=== PATIENT | male | born 1955 | race Caucasian/White ===

== ENCOUNTER → 2023-11-19 08:12 | Outpatient (REF) | payer MEDICARE, SELFPAY | LOC: HWRCS 08:12 | PROVIDERS: ATTENDING PHYSICIAN Internal Medicine Cardiovascular Disease; FAMILY PHYSICIAN Family Medicine | DX: I51.7 Cardiomegaly (principal); I35.1 Nonrheumatic aortic (valve) insufficiency | CPT/HCPCS: 93306 ==

== ENCOUNTER 2023-12-16 06:51 | Day surgery (SDC) | payer MEDICARE, SELFPAY ==
[2023-12-16 07:31] VITALS: BMI 32.4
== END 2023-12-16 09:10 | disposition home or self-care (01) ==
LOC: CATH 06:51
PROVIDERS: ATTENDING PHYSICIAN Internal Medicine Cardiovascular Disease; FAMILY PHYSICIAN Family Medicine; OTHER PHYSICIAN Specialist
DX: I08.2 Rheumatic disorders of both aortic and tricuspid valves (principal); I10 Essential (primary) hypertension; E78.5 Hyperlipidemia, unspecified; N40.0 Benign prostatic hyperplasia without lower urinary tract symptoms; Z85.46 Personal history of malignant neoplasm of prostate
CPT/HCPCS: 93312; 93320; 93325

== ENCOUNTER → 2023-12-30 09:15 | Outpatient (REF) | payer MEDICARE, SELFPAY | LOC: HWRAD 09:15 | PROVIDERS: ATTENDING PHYSICIAN Thoracic Surgery (Cardiothoracic Vascular Surgery); FAMILY PHYSICIAN Family Medicine | DX: I35.1 Nonrheumatic aortic (valve) insufficiency (principal); I71.21 Aneurysm of the ascending aorta, without rupture; Z01.810 Encounter for preprocedural cardiovascular examination | CPT/HCPCS: 71275; 74174; Q9967 ==

== ENCOUNTER 2023-12-31 06:15 | Day surgery (SDC) | payer MEDICARE, SELFPAY ==
[2023-12-31] VITALS (11 sets, daily range): BP systolic 120–154; BP diastolic 66–83; BMI 33.0
[2023-12-31] MEDS: LOW STRENGTH ASPIRIN 324 MG PO (06:41)
--- NOTE | 2023-12-31 08:28 | ITS.CL.CATH ---
Prepared Foods Supervisor - Catheterization
Cardiac Catheterization
Procedure Report:
CARDIAC CATHETERIZATION REPORT
Date of Procedure: 12/31/2023
Referring: Ben Vigil MD
Indication: Severe AI with aortic root enlargement and ascending aortic enlargement
�
HEMODYNAMIC DATA
AO: 124/67
LV: 124/14
�
LEFT VENTRICULOGRAPHY: The left ventricle appears mildly enlarged with borderline systolic function with visually estimated EF 55%.
ASCENDING AORTOGRAPHY: There appears to be moderate dilation of the aortic root and ascending aorta. There is 4+ aortic insufficiency
�
CORONARY ANGIOGRAPHY
Dominance: Right
Left Main: Normal
LAD: Normal
Circumflex: Normal
RCA: Normal dominant vessel
�
Closure Device: None-the procedure was performed via the right radial artery. The Hemant's test was normal prior to the procedure.
�
Radiation (mGy): 623
DAP (cm2.Gy): 49.4
Fluoroscopy time: 5.3 minutes
�
CONCLUSIONS
1:�Left ventricular enlargement with borderline systolic function with EF 55%
2:�Severe aortic insufficiency
3. At least moderate dilation of the aortic root and ascending aorta
4. Normal coronary arteries
5. Patient is scheduled for Bentall repair on 01/13/24
�
�
Copy to: Ben Vigil MD, Mary Freedman DO, Jorge Osorio MD
�
Joao Cuba MD, [facility], [facility]
== END 2023-12-31 11:00 | disposition home or self-care (01) ==
LOC: CATH 06:15
PROVIDERS: ATTENDING PHYSICIAN Internal Medicine Cardiovascular Disease; FAMILY PHYSICIAN Family Medicine; OTHER PHYSICIAN Internal Medicine Cardiovascular Disease
DX: I35.1 Nonrheumatic aortic (valve) insufficiency (principal); Z79.899 Other long term (current) drug therapy; I10 Essential (primary) hypertension
CPT/HCPCS: 93458; 93567; C1894; Q9967

== ENCOUNTER 2024-01-13 05:14 | Inpatient (IN) | payer MEDICARE, SELFPAY ==
[2023-12-27 08:47] VITALS: BMI 32.8
[2023-12-27 09:25] LABS: % Basophils 0.6 % (0-2); % Eosinophils 2.4 % (0-6); % Immature Granulocytes 0.3 % (0-0.5); % Lymphocytes 20.8 % (20.5-51.1); % Monocytes 8.9 % (1.7-9.3); Absolute Eosinophils 0.1 10^3/uL (0-0.7); Absolute Lymphocytes 0.7 10^3/uL (1.2-3.4); Absolute Monocytes 0.3 10^3/uL (0.1-0.6); Absolute Neutrophils 2.3 10^3/uL (1.4-6.5); Hematocrit 35.3 % (39.0-52.0); Hemoglobin 12.7 g/dL (13.0-18.0); Mean Corpuscular Hgb 32.7 pg (27.0-31.0); Mean Platelet Volume 9.9 fL (7.4-10.4); Nucleated Red Blood Cells % 0 % (-); Platelet Count 179 10^3/uL (130-400); Red Blood Cell Count 3.88 10^6/uL (4.70-6.10); Red Cell Dist. Width 12.7 % (11.5-14.5); White Blood Cell Count 3.4 10^3/uL (4.8-10.8)
[2023-12-27 09:27] LABS: INR 1.04; PT 13.9 Sec (11.4-14.6)
[2023-12-27 09:31] LABS: Urine Albumin Negative (Neg - Trace); Urine Bilirubin Negative (Negative); Urine Character Clear (Clear); Urine Color Yellow; Urine Glucose Negative (Negative); Urine Ketone Negative (Negative); Urine Leukocyte Negative (Negative); Urine Nitrite Negative (Negative); Urine Occult Blood Negative (Negative); Urine Specific Gravity 1.025 (<1.030); Urine Urobilinogen Negative (Neg - 1+)
[2023-12-27 09:36] LABS: ALT (SGPT) 25 U/L (0-50); AST (SGOT) 30 U/L (17-59); Albumin 4.4 g/dl (3.5-5.0); Alkaline Phosphatase 46 U/L (38-126); Blood Urea Nitrogen 27 mg/dl (9-20); Carbon Dioxide 25 mmol/L (22-30); Chloride 107 mmol/L (98-107); Direct Bilirubin 0.2 mg/dl (0.0-0.4); Estimated Creatinine Clearance 78 ml/min; Glucose 99 mg/dl (70-99); Potassium 3.9 mmol/L (3.5-5.1); Sodium 144 mmol/L (135-145); Total Bilirubin 0.7 mg/dl (0.2-1.3); Total Protein 6.7 g/dl (6.3-8.2); eGFR > 60.00
--- NOTE | 2023-12-27 10:41 | CM ---
CM following for DC planning needs.
Met w/ patient during PATs for planned CT Surgery 01/12.
Pt. shares that he resides in a private, 1 story home w/ 2 ORA w/ spouse.
He is functionally indep. w/ ADLs, mobility without the use of any assisted device.
Pt. has RX plan and uses [facility] [place] for prescription needs.
Reviewed pre and post op routines.
Soap, shower instructions and Cardiac Surgery booklet reviewed/ provided.
Discussed post op restrictions to include lifting, driving, flying and sternal precautions.
Reviewed post op MD appointments, Cardiac Rehab and visit from CT Transitional Care RN.
Plan for CT Surgery 01/12.
Anticipated DC plan is for home w/ CT Transitional Care RN.
CM to follow for DC planning needs.
[2024-01-13] VITALS (13 sets, daily range): BP systolic 96–151; BP diastolic 73–91; BMI 33.4
[2024-01-13] MEDS: LOPRESSOR 25 MG PO (05:58)
[2024-01-13] MEDS: PROTONIX 40 MG PO (05:58)
[2024-01-13] MEDS: BACTROBAN 2% OINTMENT 1 APPLIC NASAL ×2 (05:58→20:22)
[2024-01-13] MEDS: MAGNESIUM OXIDE 500 MG PO (05:59)
--- NOTE | 2024-01-13 06:02 | W.CVOR.SURPR ---
[facility]OR Surgeon Immed Pre Op
-
I have examined this patient prior to performance of the scheduled procedure.
The patient's condition is unchanged from the time of the dictated/written History and
Physical and the patient is able to undergo the scheduled procedure.
Centerline CTA measurements performed, mild dilation of the ascending aorta, mid-ascending at it's maximal diameter is 4.4cm, root is 4.0-4.2cm, annulus 2.9-3.4cm, severe AI
Plan is for SAVR if AV repair is no feasible, given the severity of the AI and primary leaflet pathology, I suspect it will be replaced. Ascending aorta to be evaluated intraop, borderline dilation given his height of 1.91m he is below 2 SD from the
average expected diamter.
--- NOTE | 2024-01-13 06:25 | PTCARENOTE ---
Patient arrived with managed security sales consultant to room 2261. Patient A+A+Ox3. No neurological deficits noted. Patient ambulates without difficulty. No c/o pain or discomfort. Patient confirmed NPO status after midnight. Patient confirmed taking 4%
Chlorhexidine shower last night and this morning. Patient clipped and prepped per protocol. CHG wipes. Admission questions and medication reconciliation completed. Pre-op medications administered. Dr. Vigil arrived and spoke with patient.
Purpose of Heart pillow use and function explained to patient - Patient with demonstration of use. I.S. 3,500ml. Patient's arrived to room. webmethods consultant to [facility].
[2024-01-13 08:00] LABS: Urine Albumin Negative (Neg - Trace); Urine Bilirubin Negative (Negative); Urine Character Clear (Clear); Urine Color Yellow; Urine Glucose Negative (Negative); Urine Ketone Negative (Negative); Urine Leukocyte Negative (Negative); Urine Nitrite Negative (Negative); Urine Occult Blood 1+ (Negative); Urine Urobilinogen Negative (Neg - 1+)
[2024-01-13 08:06] LABS: ACT+ - POC 98 Seconds (82-134)
--- NOTE | 2024-01-13 08:25 | CM ---
Reviewed chart. Mr. Urban is in the operating room today. Prior to admission he resides with his spouse in a one story home with two steps to enter. Prior to admission he was independent with ambulation and adls. He yun not have any DME in the
home. He has a prescription plan and uses [facility]. Medical work-up in progress. The discharge plan is to retrun home with his spouse and a home visit by the Transitional Care Nurse when medically stable.
[2024-01-13 08:32] LABS: Urine Mucus Many
[2024-01-13 08:34] LABS: Urine Amorphous Seen; Urine Squamous Cell 0-2 /LPF (Few)
[2024-01-13 08:36] LABS: Urine Urothelial Cell 21-25 /LPF (FEW)
[2024-01-13 08:37] LABS: Urine White Cell 0-2 /HPF (0-5)
[2024-01-13 08:56] LABS: ACT+ - POC 627 Seconds (82-134)
[2024-01-13 09:26] LABS: B.E. - POC -2.1 mmol/L; Glucose - POC 101 mg/dl (70-99); HCO3 - POC 24 mmol/L (21-28); Hematocrit - POC 30 % PCV (42-52); Hemodilution- POC No; Hemoglobin Calculated - POC 10.3; Ionized Calcium - POC 1.32 mmol/L (1.15-1.33); O2 Saturation %Calculated-POC 96.7 % (94-98); PCO2 - POC 45 mmHg (35-48); PO2 - POC 94 mmHg (83-108); POC Comment PRE; Potassium - POC 3.6 mmol/L (3.5-5.1); Sodium - POC 143 mmol/L (136-145); pH - POC 7.33 (7.35-7.45)
[2024-01-13 09:35] LABS: ACT+ - POC 526 Seconds (82-134)
[2024-01-13 09:54] LABS: Glucose - POC 126 mg/dl (70-99); HCO3 - POC 28 mmol/L (21-28); Hematocrit - POC 27 % PCV (42-52); Hemodilution- POC Yes; Hemoglobin Calculated - POC 9.2; PCO2 - POC 47 mmHg (35-48); PO2 - POC 438 mmHg (83-108); POC Comment CPB; Potassium - POC 4.5 mmol/L (3.5-5.1); Sodium - POC 143 mmol/L (136-145); pH - POC 7.37 (7.35-7.45)
[2024-01-13 10:01] LABS: ACT+ - POC 463 Seconds (82-134)
[2024-01-13 10:30] LABS: B.E. - POC -0.1 mmol/L; Glucose - POC 151 mg/dl (70-99); HCO3 - POC 25 mmol/L (21-28); Hematocrit - POC 29 % PCV (42-52); Hemodilution- POC Yes; Ionized Calcium - POC 1.18 mmol/L (1.15-1.33); O2 Saturation %Calculated-POC 99.9 % (94-98); PCO2 - POC 40 mmHg (35-48); PO2 - POC 286 mmHg (83-108); POC Comment WARM; Potassium - POC 4.8 mmol/L (3.5-5.1); Sodium - POC 143 mmol/L (136-145); Specimen Type - POC Arterial
[2024-01-13 10:33] LABS: ACT+ - POC 109 Seconds (82-134)
[2024-01-13 10:54] LABS: B.E. - POC -2.4 mmol/L; Glucose - POC 122 mg/dl (70-99); HCO3 - POC 23 mmol/L (21-28); Hematocrit - POC 27 % PCV (42-52); Hemodilution- POC Yes; O2 Saturation %Calculated-POC 98.8 % (94-98); PCO2 - POC 39 mmHg (35-48); PO2 - POC 129 mmHg (83-108); POC Comment POST; Sodium - POC 143 mmol/L (136-145); Specimen Type - POC Arterial; pH - POC 7.37 (7.35-7.45)
--- NOTE | 2024-01-13 11:06 | CON.INTV ---
Consultation
Consultation Request
Date/Time Consultation Requested: 01/13/2024 - 1035
Date/Time Consultation Performed: 01/13/2024 - 1102
Requesting Provider: CHANDLER Light
Performing Provider: Yair Smith MD
Reason for Consultation: s/p SAVR, LA-MAZE with clip
Medical History
-
Chief Complaint: Elective aortic valve replacement
History of Present Illness:
68-year-old male non-smoker with a past medical history of aortic valve insufficiency, AAA, recurrent prostate adenocarcinoma s/p radical prostatectomy and lymphadenectomy (02/2019) + XRT, hyperlipidemia and hypertension who presents with elective
surgical aortic valve repair. He is known to the cardiothoracic surgery service with last visit on 12/18/[address] Vigil. Prior echo from 11/19/2023 showed moderate/severe eccentric AI with a dilated aortic root with the sinuses of Valsalva at
4.2 cm, ST junction 3.9 cm and ascending aorta 4.5 cm. GUERLINE performed on 12/16/23 showed dilated RV with normal systolic function, severe AI with no regional LV wall motion abnormalities. He meets criteria for surgical intervention. He also
endorsed shortness of breath with stairs, and his SOB has been worsening over the last 1 year. Left heart catheterization on 12/31/2023 showed normal coronary arteries. Surgical AV repair was discussed including its risks and benefits, and today
he underwent surgical aortic valve replacement; during the procedure while the Darby was being placed he went into atrial fibrillation and he underwent left atrial MAZE + left atrial appendage exclusion with a 35mm clip, and was cardioverted with 50
J once he came off bypass due to recurrent fibrillatory event. There were no post-operative complications and he was transferred to the CVICU postoperatively. Hemming And Tacking Machine Operator/pulmonary service now consulted for additional management/recommendations.
When I saw the patient he was in bed, intubated on SIMV at 12/600/80%/10, breathing at 14 breaths/min, with PIP: 18 cmH2O and VTe 429 mL. Heart rate 80, BP via left radial A-line: 116/75, PAP: 30/20, CO/CI: 5.17/2.08, respectively. He is
saturating 92%. He has mediastinal chest tubes x 2. Currently sedated on Precedex at 0.5 mcg/kg/hr + insulin drip at 2.6 units/hr.
PMHx: History of prostate cancer s/p prostatectomy/lymphadenectomy + XRT, hyperlipidemia, hypertension, aortic valve insufficiency, AAA
PSHx: Robotic radical prostatectomy and lymphadenectomy (02/2019), torn bicep tendon surgery, right eye cataract surgery (11/2019)
Past Medical History
Past Medical History: Other (Above as per HPI)
Past Surgical History: Other (Above as per HPI)
Social History
Tobacco: Non-smoker
Alcohol: Occasional (Socially during weekends)
Drug: None
Personal:
Living: With Family
Employment: Retired
Family History
Family History: Cancer (Father: Pancreatic cancer; Paternal grandmother: Breast cancer; Mother: Lung cancer; Sister: Ovarian cancer; Brother: Melanoma) and Hypertension (Father)
Allergies / Home Medications
Allergies
Allergy/AdvReac Type Severity Reaction Status Date / Time
No Known Allergies Allergy Verified 12/31/23 06:56
Home Medications
�Medication �Instructions �Recorded �Confirmed �Last Taken �Type
amlodipine 10 mg tablet 10 mg PO DAILY 02/27/19 01/13/24 01/10/24 08:00 History
10 mg
fenofibrate nanocrystallized 145 145 mg PO DAILY 02/27/19 01/13/24 01/12/24 08:00 History
mg tablet 145 mg
hydrochlorothiazide 25 mg tablet 25 mg PO DAILY 12/16/23 01/13/24 01/10/24 08:00 History
25 mg
labetalol 200 mg tablet 200 mg PO BID 12/16/23 01/13/24 01/12/24 20:00 History
200 mg
tamsulosin 0.4 mg capsule 0.4 mg PO HS 12/16/23 01/13/24 01/12/24 20:00 History
0.4 mg
Review of Systems
-
Unable to Obtain full review of systems at this time due to: Patient Intubation
Vitals / Labs / Diagnostic Testing
Vital Signs
Temp Pulse Resp BP Pulse Ox
97.6 F 80 14 145/73 93
01/13/24 12:07 01/13/24 12:05 01/13/24 12:07 01/13/24 05:58 01/13/24 12:35
Lab Data
01/13/24 11:34
Laboratory Results
01/13/24
11:34
PT 17.2 H
INR 1.38
APTT 31.3
pH 7.29 L
pCO2 52 H
pO2 74 L
HCO3 25.0
O2 Delivery Level
Diagnostic Testing:
Physical Exam
-
HEENT: Normocephalic, Anicteric and Other (ETT in place)
Cardiovascular: S1/S2 and Peripheral Edema (negative)
Respiratory: Wheeze (negative), Rales (negative), Rhonchi (negative), Non-Labored Respirations, Other (Mechanical breath sounds heard bilaterally) and Other (chest tubes: mediastinal chest tubes x2)
GI: Soft, Non Distended, Non Tender and Normal Bowel Sounds
Neurology: Tremors (negative) and Other (Sedated)
Skin: Warm and Dry
General: Respiratory Distress (negative), Fever (negative) and Chills (negative)
Assessment
-
Assessment: 68-year-old male non-smoker with a PMHx of aortic valve insufficiency, AAA, recurrent prostate adenocarcinoma s/p radical prostatectomy and lymphadenectomy (02/2019) + XRT, hyperlipidemia and hypertension who presents with elective
surgical aortic valve repair. He is known to the cardiothoracic surgery service with last visit on 12/18/[address] Vigil. Prior echo from 11/19/2023 showed moderate/severe eccentric AI with a dilated aortic root with the sinuses of Valsalva at
4.2 cm, ST junction 3.9 cm and ascending aorta 4.5 cm. He has been having worsening shortness of breath and meets indication for surgical aortic valve replacement. On 01/13/2024, he underwent surgical aortic valve replacement; during the procedure
while the Darby was being placed he went into atrial fibrillation and underwent left atrial MAZE + left atrial appendage exclusion with a 35mm clip, and was cardioverted with 50 J once he came off bypass due to recurrent fibrillatory event. There
were no complications and he was transferred to the CVICU postoperatively. Hemming And Tacking Machine Operator/pulmonary service now consulted for additional management/recommendations.
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
Impression:
#Severe aortic valve insufficiency with prolapse leaflets and dilated RV s/p surgical aortic valve replacement (POD #0)
#New onset atrial fibrillation s/p left atrial maze + left atrial appendage exclusion with 35mm clip (POD #0)
#Acute thrombocytopenia (mild)
#Acute respiratory failure with hypercapnia
#Chronic anemia
#History of recurrent prostate cancer s/p prostatectomy/lymphadenectomy + XRT
#AAA without rupture
#Hypertension
#Hyperlipidemia
Plan:
Ventilator settings reviewed
FiO2 will be weaned to maintain SpO2 >90-94%
Minute ventilation will be adjusted
Arterial blood gases will be monitored
Spontaneous breathing trial will be attempted with hopeful extubation after anesthesia/sedation wear off
prn nebulized bronchodilators
Pulmonary artery catheter parameters will be followed
Pressors/antihypertensive/inotropes/diuretics will be provided as needed
Maintain MAP>65
Replete electrolytes with K>4, Mg>2
Monitor for recurrence of atrial fibrillation, and continue with amiodarone
He is s/p left atrial appendage exclusion; defer starting systemic AC to cardiology
Monitor chest tube output (mediastinal chest tubes x2)
Monitor hemoglobin
Monitor platelet count and coags
Transfuse blood products as needed to maintain Hb>7g/dL, plt>50k (given post-operative status)
CT surgery managing chest tubes
Monitor blood sugar to maintain euglycemia with goal BG 140-180
Insulin drip per protocol
Aspiration precautions
VAP prevention protocol
DVT prophylaxis
Early nutrition
Early mobilization
Critical care statement: A total of 41 minutes of critical care time was provided for this patient today. This includes management of ventilator, spontaneous breathing trial, arterial blood gases, pressors, of unstable vital signs, evaluation of the
patient at bedside, reviewing the patient's pertinent medical records including radiographs, microbiology, laboratory evaluations, and discussion with primary team and critical care nursing.
Imaging:
CXR 01/13/2024: Mild pulmonary vascular congestion.
--- NOTE | 2024-01-13 11:17 | W.PN.CT.SURG ---
CT Surgery Operative Note
-
CARDIAC SURGERY OPERATIVE REPORT
Preoperative Diagnosis: Aortic valve insufficiency with prolapse leaflets and dilated ventricle
Postoperative Diagnosis: Same, and new onset atrial fibrillation
Procedure(s) Performed:
1. Standard sternotomy with aortic root atrial cannulation
2. Left atrial maze [encompass clamp, posterior wall isolation]
3. Left atrial appendage exclusion [35 mm clip]
4. Surgical aortic valve replacement [29 mm bioprosthesis]
5. Sternal fixation with plates x 3
6. Transesophageal echocardiography
7. Placement temporary ventricular pacing wire
Date of Surgery: 01/13/2024
Comorbidities:
1. Severe aortic valve insufficiency secondary to leaflet prolapse x 2
2. Dilated cardiomyopathy, nonischemic secondary to longstanding aortic valve insufficiency
3. Hyperlipidemia
4. Hypertension
5. History of recurrent adenocarcinoma of the prostate, status post radical prostatectomy and chemotherapy
6. CKD stage III
7. Ascending thoracic aortic ectasia/mild aneurysmal dilation
Attending Surgeon: Ben Vigil MD, MS
Assistants: Ben Serna PA-C (present and necessary to first aid attendant, retraction, suction, exposure, suture management, and wound closure under my direction)
Anesthesiology: Salomón Mattson MD and Nicol Gonzalez CRNA
Scrub and Circulating RNs: Tommie Smiley RN, Suzette Meeks RN
Recreation Coordinator: Harsh Ross CCP
Anesthesia: GETA
EBL: per perfusion records
Products: None
CPB Time: 78 minutes
Aortic Cross Clamp Time: 51 minutes
Indication(s) for Procedures: This is a 68-year-old male with severe aortic valve insufficiency, he also has a mildly dilated root and mildly dilated ascending thoracic aorta. He has had serial echocardiograms going back as far as 2022 which
demonstrated an LVEDD/LVSD of 6.3/3.9 cm, this has progressed to his most recent transthoracic echocardiogram performed in 11/19/2023 which revealed an LVEDD and LVESD of 6.8/4.8 cm, respectively. Given the progressive dilation on serial
echocardiograms, he underwent a transesophageal echocardiogram which demonstrated severe aortic valve insufficiency secondary to leaflet prolapse particularly to the noncoronary cusp and right coronary cusp. He is a trileaflet aortic valve. Ago
his thoracic aorta did measure to be 4.4 to 4.5 cm, a dedicated CT angiogram of the chest abdomen pelvis and centerline measurements were performed by me. His ascending thoracic aorta measured 4.3-4.4 at his greatest diameter. The root was
approximately 4.0 to 4.2 cm at the sinus of Valsalva's and his STJ was approximately 4.0 cm. His annulus measured to be 28 x 32 to 33 mm. Given his height of 1.91 m and BSA of 2.48, I did not believe he met criteria for replacement or ascending
thoracic aortic replacement. Plan was for surgical valve replacement with left atrial appendage exclusion.
Aortic Valve Description: Trileaflet aortic valve, prolapse of the noncoronary cusp as well as some prolapse of the right coronary cusp. Left and right coronary arteries in the normal anatomic positions with high ostia.
Findings: His left ventricular ejection fraction was low normal at approximately 50% with no significant regional wall motion abnormalities. Following surgery his EF remained the same with no new regional wall motion abnormalities. He had prolapse
of both the noncoronary cusp as well as the right coronary cusp with a nonbeing worse. I did do a plication stitch at the [facility] however I felt this would not be successful and so the leaflets were excised and annular sutures placed.
However given that there was prolapse of both leaflets a total of 16 nonpledgeted 2 Ethibond suture plate circumferentially from LVOT through annulus through sewing cuff. Between 9 mm bioprosthetic valve was then parachuted into place and secured
core knots. The left and right coronary arteries were free from obstruction. The aorta was closed in standard fashion in double layer. Of note, he did go into atrial fibrillation with controlled rates after induction during the [place] placement.
Given this, a left atrial maze was performed to isolate his posterior wall and left atrial appendage was excluded with a 35 mm clip. His left atrial appendage was found to be free of any thrombus or debris preoperatively and totally occlusive at
the end of the case. He did not require any blood products, did not require any inotropic support, did not require any pacing. Coming off of bypass he did have 1 fibrillatory event likely secondary to air entrainment which required defibrillation
at 50 J. Cardiac index was above 2 and there is no paravalvular leak and a mean gradient of 4 across the valve. Of note, he did require. Time for pulmonary recruitment as his saturations were in the low 90s coming off cardiopulmonary bypass.
Specimen(s): Aortic valve leaflet.
Prosthesis:
29mm DIEHL INSPIRIS RESILIA AVR, SN [id number]
35mm left atrial appendage clip, serial #[id number]
1 mustache plate, 1 gold curved box plate and 1 box bridge plate
Description of Procedure: The patient was taken to the operating room. Their identity and procedure to be performed were verified and they were positioned supine on the operating table. Induction via general anesthesia with endotracheal intubation
was performed and central venous access and arterial monitoring were inserted. A preoperative transesophageal echocardiogram was performed to assess cardiac function and valvular function. The patient was then prepped and draped from chin to feet in
a sterile fashion. A preoperative time-out was performed with all members of the team present. A midline chest incision was performed along with median sternotomy. The innominate vein was isolated. Full heparinization was given (a total of 75
units). We created a pericardial well. The aortic cannulation site was chosen where it was soft, pliable, and free of calcium. Cannulation was performed with an arterial cannula in the ascending aorta and a triple-stage venous cannula through the
right atrial appendage. The arterial cannula line had an appropriate bounce and correlating pressures with test dosing. The ACT was confirmed to be over 400 and retrograde autologous priming was performed before commencing cardiopulmonary bypass.
The SVC was then from the right pulmonary artery. The oblique sinus was then developed. The encompass clamp was passed through the oblique and transverse sinuses and 3 successful pairs of ablation were performed. The pulmonary artery
was away from the aorta to facilitate a clamp site and aortotomy. A retrograde coronary sinus catheter was placed via the right atrium under manual and GUERLINE guidance. A left ventricular vent was placed at the right superior pulmonary vein
and secured. The aortic cross-clamp was placed after decreasing the flow on the bypass and mean arterial pressure. The aorta was then opened and stay sutures were placed in order to fill Siltape exposure. A total of 1.2L initial dose of retrograde
and direct ostial antegrade Del-Nido cardioplegia solution was given and planned for re-dosing every 75 minutes as necessary. There was rapid electro-mechanical arrest of the heart at 650 cc of cardioplegia essentially this was restarted given down
the right coronary ostium. Cold slush was placed into a sponge and topically on the RV while we systemically cooled to 34 degrees centigrade. The heart was then medialized and the left atrial appendage was then exposed and sized to 35 mm clip which
was applied flush to the base.
Carbon dioxide was used to flood the field. The location of both left and right coronary vessels were visualized in the root.The leaflets were excised and sent for pathological assessment. Initially plicated the noncoronary cusp but given that
there was also prolapse of the right coronary cusp, I felt that repairing this valve would be unsuccessful. The leaflets were then excised and sent off for pathology. A total of 16 Non-pledgeted 2-0 ethibond inverted annular sutures were placed
[id number] circumferentially. These were brought through the sewing cuff of the prosthetic valve which as then parachuted into place. The left and right coronary ostia were visualized and were unobstructed by the valve. A Cor-Knot device was used
to secure the annular sutures. The valve was inspected and was well seated. The aortotomy was approximated with 4-0 prolene in two layers. De-airing maneuvers were performed and temporary bipolar ventricular pacing wires were placed on the base of
the right ventricle. The patient was placed in a Trendelenburg position and flows on bypass were lowered. The aortic cross clamp was removed and flows were slowly brought back up. The aortotomy appeared hemostatic. Transesophageal echocardiography
revealed no paravalvular leak and appropriate prosthetic function. Once de-airing was satisfactory, the left ventricular and root vents were removed. After verifying acceptable parameters, we initiated weaning from cardiopulmonary bypass. Once we
were off cardiopulmonary bypass, the venous cannula was clamped and removed. A test dose of protamine was administered and the patient was monitored for any adverse reaction before resuming protamine. Once half of the protamine dose was delivered,
pump suckers were turned off and the systolic blood pressure was lowered for aortic decannulation. The aortic cannula was removed and pursestrings were tied down. All cannulation sites were oversewn with a 4-0 prolene. The aortotomy suture line was
inspected and hemostasis was confirmed. Mediastinal hemostasis was obtained. Two 24Fr Yunior drains were placed within the pericardium. The sternum was approximated with 3#7 single and 3 #8 double stainless steel wires with 3 additional plates for
reinforcement. Fascia was approximated with #1 vicryl suture. The subcutaneous, dermis and epidermis were closed in layers in a running fashion. The skin wound was cleansed and dressed.
All instrument, sponge, and needle counts were confirmed to be correct x 2 at the end of the operation. The patient was transferred to the cardiac intensive care unit in critical but stable condition.
I, Dr. Ben Vigil, was present, scrubbed for, and performed all critical elements of this procedure.
Ben Vigil MD, MS
Cardiothoracic Surgeon
[facility]
This operative dictation was created using the [employer] dictation system. Please excuse any grammatical, typographical, or 'sound alike' errors
[2024-01-13 11:41] LABS: Glucose - Point of Care 128 mg/dl (70-99)
--- NOTE | 2024-01-13 11:46 | W.PN.UPDATE ---
Update Note
Progress Note Update
68-year-old male electively admitted for aortic valve replacement. Ascending aorta measured 4.5 cm on CTA. Patient developed paroxysmal atrial fibrillation during [place] placement.
IV fluids: 1200
U.O.:� 350
UF:�
Blood:� none
Wires:� v-wires
Inotropes:�
Pressors:� Levophed-off on arrival
Sedatives:� Precedex
�
NEURO: sedated on Precedex, pupils +2mm B/L
RESP: #8OT @24cm> 500/60%/14/5. Lungs clear B/L. 2 mediastinal (30cc on arrival) chest tubes to -20cm suction. Sanguineous drainage
CV: RRR +S1, S2, no S3, no�rub, no murmur. Dermabond to median sternotomy. RIJ w/[place] locked @ 48cm. PA 33/22; CVP 13; CI 2.08
ABD: round, soft, no BS
EXT: no edema, +2/4 DP pulses B/L, no femoral bruit, left radial A-line intact
: Crum with clear yellow urine
�
A/P: POD #0 s/p aortic valve replacement [#29 mm bioprosthesis], Left atrial maze [encompass clamp, posterior wall isolation], left atrial appendage exclusion [#35 mm clip]. Sternal fixation with plates x 3
GUERLINE: EF�
- wean and extubate
- will need instruction regarding antibiotic prophylaxis for dental and invasive procedures
# Paroxysmal atrial fibrillation>s/p MAZE/ANUJA clip
- ASA only
- continue beta marilin
# Acute hypoxic respiratory failure-expected
- ETT good position, no fluid/PTX on CXR
- increase PEEP 10, FiO2 80%, TV 600
- trend ABG
# Hx prostate cancer s/p prostatectomy 2019
- resume Flomax prior to Crum removal
�
# Acute surgical blood loss anemia-expected
- trend CBC
# HTN
- resume home Amlodipine and HCTZ as BP permits
�
# Hyperlipidemia
- resume�fenofibrate when tolerating solid foods
[2024-01-13 11:47] LABS: Ionized Calcium 1.36 mMOL/L (1.15-1.33); O2 Saturation % 95.3 % (94-98); PCO2 52 mmHg (35-48); PO2 74 mmHg (83-108); Potassium 4.2 mMOL/L (3.5-5.1); Sodium 140 mMOL/L (136-145); pH 7.29 (7.35-7.45)
[2024-01-13 11:48] LABS: Hemoglobin 10.4 g/dL (13.0-18.0); Platelet Count 144 10^3/uL (130-400)
[2024-01-13 11:51] LABS: Mixed Venous O2 Saturation 64.1 %
--- NOTE | 2024-01-13 11:53 | W.PN.CD ---
Addendum entered and electronically signed by Deangelo Vazquez MD 01/13/24 16:56:
I saw and examined the patient.
The MANUFACTURING CONTROLLER's note was reviewed and I agree with the note.
Comment: EKG looks good. Extubated. Intraop GUERLINE good. Agree with care plan.
Original Note:
Today's Communication / Plan
-
Pulmonary recruitment per director of logistics service
Follow telemetry
Impression / Plan
-
IMPRESSION/PLAN: 68M with prostate cancer with recurrence, hypertension, mild LVH, severe AI, and ascending aorta dilation at 4.4 cm presented for SAVR.
Outpatient reconciliation accountant: Dr. Osorio
SAVR (29mm Ray Inspiris) by Dr Vigil 01/13/2024
-Pre LVEF 50%, unchanged post without RWMA
-Coming off of bypass he did have 1 fibrillatory event likely secondary to air entrainment which required defibrillation at 50 J
-MG 4mmg with CI > 2 at the end of the case
-EKG sinus with prolonged QT, EKG in am
Atrial fibrillation, paroxysmal
-Controlled rates after induction during the [place] placement, left atrial MAZE performed & ANUJA clip
-Follow telemetry
HTN, managed by Nephrology
CKDIIIa
Prostate cancer S/P Robotic Radical prostatectomy and Lymphadenectomy ([place], 02/2019) & XRT
SUBJECTIVE:
Intubated and sedated. Operative report reviewed
Physical Exam
Vital Signs/Labs
Vital Signs
Temp Pulse Resp BP Pulse Ox
97.6 F 79 12 145/73 95
01/13/24 11:37 01/13/24 11:35 01/13/24 11:37 01/13/24 05:58 01/13/24 11:52
01/12/24 01/13/24 01/14/24
06:59 06:59 06:59
Actual Weight 121.2 kg
PT 13.9 Sec (11.4-14.6) 12/27/23 08:56
INR 1.04 12/27/23 08:56
APTT 29.0 Sec (23.4-35.0) 12/27/23 08:56
Physical Exam
Constitutional: No acute distress and Comfortable
EENT: Anicteric and Moist mucous membranes
Cardiovascular: Rhythm & rate is regular and Pedal edema is absent
Respiratory: Lungs clear to auscul. and Other (Mechanical ventilation)
GI: Soft and Distention absent
Neuro/Psych: Other (Sedated)
Other: Skin (Warm and dry without edema)
Data Reviewed
-
Date of Service: January 13, 2024
[2024-01-13 11:59] LABS: INR 1.38; PT 17.2 Sec (11.4-14.6)
[2024-01-13 12:00] LABS: APTT 31.3 Sec (23.4-35.0)
[2024-01-13 12:12] LABS: Blood Urea Nitrogen 21 mg/dl (9-20); Estimated Creatinine Clearance 85 ml/min; Glucose 122 mg/dl (70-99); Magnesium 2.6 mg/dl (1.6-2.3)
--- NOTE | 2024-01-13 12:13 | PTCARENOTE ---
Received pt from [facility] at 1130; pt intubated and sedated; NSR on monitor and VSS; Epicardial V wire in place and box turned off; RIDesiree Friedan floated to 46, Left S-line and PIV x1; all lines leveled and zeroed; Insulin and Precedex infusing see
flow sheet for details; Lungs diminished; ETT 8 @ 22; SIMV 60%, 12, 500, 10; CT x2 to -20 wall suction no air leak and no crepitus noted; hypoactive bowel sounds; Crum catheter draining clear yellow urine; no edema; palpable pulses throughout;
surgical site C/D/I; Family at bedside and updated; see nursing documentation for further details.
CI 2.08
CO 5.17
SVR 1129
ABGS reviewed with CVNP vent settings changed to SIMV 80%, 600, 12, 10. Next ABG at 1230
[2024-01-13] MEDS: NSS 500 IV (12:39)
[2024-01-13] MEDS: ANCEF 10 IV ×2 (12:39)
[2024-01-13] MEDS: NEURONTIN PO ×2 (12:40→15:45)
[2024-01-13 12:52] LABS: HCO3 24.8 mmol/L (21-28); O2 Saturation % 97.2 % (94-98); PCO2 45 mmHg (35-48); PO2 82 mmHg (83-108); pH 7.35 (7.35-7.45)
[2024-01-13 13:01] LABS: Glucose - Point of Care 113 mg/dl (70-99)
--- NOTE | 2024-01-13 13:08 | PTCARENOTE ---
Temporary pacer tested, pacer set to back up VVI 40/8/2; NSR and VSS on monitor.
[2024-01-13 14:06] LABS: Glucose - Point of Care 97 mg/dl (70-99)
[2024-01-13] MEDS: TYLENOL PO (14:21)
[2024-01-13 14:27] LABS: B.E. -1.3 mmol/L; HCO3 23.7 mmol/L (21-28); Ionized Calcium 1.34 mMOL/L (1.15-1.33); O2 Saturation % 97.7 % (94-98); PCO2 40 mmHg (35-48); PO2 87 mmHg (83-108); Potassium 4.1 mMOL/L (3.5-5.1); Sodium 140 mMOL/L (136-145); pH 7.38 (7.35-7.45)
[2024-01-13 14:28] LABS: O2 Therapy 40% FiO2
[2024-01-13] MEDS: OFIRMEV 100 IV (14:42)
[2024-01-13 15:07] LABS: Glucose - Point of Care 116 mg/dl (70-99)
[2024-01-13 15:13] LABS: B.E. -2.2 mmol/L; HCO3 23.2 mmol/L (21-28); O2 Saturation % 98.5 % (94-98); PCO2 41 mmHg (35-48); PO2 92 mmHg (83-108); pH 7.36 (7.35-7.45)
--- NOTE | 2024-01-13 15:13 | PTCARENOTE ---
Respiratory at bedside and pt placed on CPAP; ABGs at 1540.
[2024-01-13 15:14] LABS: Hematocrit 31.8 % (39.0-52.0); Hemoglobin 11.1 g/dL (13.0-18.0); Platelet Count 140 10^3/uL (130-400)
[2024-01-13] MEDS: PACERONE PO (15:45)
[2024-01-13 15:52] LABS: B.E. -0.9 mmol/L; HCO3 23.5 mmol/L (21-28); O2 Saturation % 97.8 % (94-98); PCO2 37 mmHg (35-48); PO2 83 mmHg (83-108); pH 7.41 (7.35-7.45)
--- NOTE | 2024-01-13 15:56 | PTCARENOTE ---
ABGs reviewed with CVNP; respiratory at bedside and pt extubated; 6LNC.
[2024-01-13 16:10] LABS: Glucose - Point of Care 111 mg/dl (70-99)
[2024-01-13] MEDS: DILAUDID 0.25 MG IV (16:45)
[2024-01-13] MEDS: LASIX 20 MG IV (16:49)
[2024-01-13] MEDS: NITROGLYCERIN PREMIX 250 IV (17:13)
[2024-01-13 17:28] LABS: B.E. -1.8 mmol/L; HCO3 23.1 mmol/L (21-28); O2 Saturation % 95.2 % (94-98); PCO2 39 mmHg (35-48); PO2 68 mmHg (83-108); pH 7.38 (7.35-7.45)
[2024-01-13] MEDS: LOW STRENGTH ASPIRIN 81 MG PO (17:39)
[2024-01-13] MEDS: ANCEF 5 IV (18:08)
[2024-01-13 18:16] LABS: Glucose - Point of Care 112 mg/dl (70-99)
[2024-01-13] MEDS: ROXICODONE 5 MG PO (18:57)
[2024-01-13 20:03] LABS: Glucose - Point of Care 120 mg/dl (70-99)
[2024-01-13 20:13] LABS: Glucose - Point of Care 115 mg/dl (70-99)
[2024-01-13] MEDS: SENOKOT-S 1 TABLET PO (20:21)
--- NOTE | 2024-01-13 20:30 | PTCARENOTE ---
Assumed care of pt from ivonne RN. Walking rounds completed. Pt AAOx3. BARRIENTOS. Following commands appropriately. Pt is SR w/ occasional PVC's/PAC's on the tele monitor. HR 80s. Temporary epicardial V-wire intact and set to backup VVI 40/8/2. Heart
tones audible. CO:7.65 CI:3.08 SVR:878. CVP ~8. PAP 20s/teens. BP 121/86. MAP 98. Palpable pulses throughout. No edema noted at this time. Pt on 6 L NC. POX 93%. Lung sounds diminished throughout. Deep breathing encouraged. Mediastinal CTx2 to -20
suction, no airleak or tidaling noted at this time, and output appropriate. Abdomen soft/nontender. Hypoactive BS. Crum catheter C/D/I and draining yellow urine. Right IJ cordis w/ SWAN C/D/I and left radial a-line C/D/I. All lines leveled, zeroed,
and flushed. Nitro infusing per protocol. Glycemic protocol followed. Sternal incision intact and MARINE TECHNICIAN. See MAR for pain medication administration. See worklist for full nursing assessment and interventions. Call leija within reach.
[2024-01-13] MEDS: PACERONE 200 MG PO (21:54)
[2024-01-13] MEDS: DILAUDID 0.5 MG IV (21:54)
[2024-01-13] MEDS: NEURONTIN 100 MG PO (21:54)
[2024-01-13] MEDS: TYLENOL 1000 MG PO (21:54)
[2024-01-13 22:01] LABS: Glucose - Point of Care 120 mg/dl (70-99)
[2024-01-14] VITALS (24 sets, daily range): BP systolic 105–156; BP diastolic 78–98; PULSE 65; O2SAT 96–97; BMI 33.0
[2024-01-14 00:01] LABS: Glucose - Point of Care 134 mg/dl (70-99)
--- NOTE | 2024-01-14 00:11 | PTCARENOTE ---
Pt reassessed. Pt SR on the tele monitor w/ occasional PVC's. HR 80s. Temporary epicardial v-wire intact. CI: 2.55. CO: 6.33. CVP ~6. PAP's 20s/teens. BP 100-120s/70s. Nitro infusing as ordered. Pt on 6 L NC. POX 95%. Mediastinal CTx2 assessment
unchanged from previous. Sternal incision intact. Crum catheter C/D/I and draining yellow urine. Right IJ cordis w/ SWAN and left radial a-line C/D/I. All lines leveled, zeroed, and flushed. Pt tolerating ice chips and sips of water. Call leija
within reach.
[2024-01-14 01:05] LABS: Glucose - Point of Care 116 mg/dl (70-99)
[2024-01-14 02:07] LABS: Glucose - Point of Care 106 mg/dl (70-99)
[2024-01-14] MEDS: ANCEF 5 IV ×2 (02:10→11:13)
[2024-01-14] MEDS: DILAUDID 0.25 MG IV (02:10)
[2024-01-14] MEDS: FLOMAX 0.4 MG PO ×2 (02:10→22:19)
[2024-01-14 03:12] LABS: Glucose - Point of Care 121 mg/dl (70-99)
--- NOTE | 2024-01-14 03:28 | W.PN.CT ---
Today's Communication / Plan
-
Plan:
-No major issues overnight. Hemodynamically and neurologically intact
-Successfully extubated on 01/13/24 @ 1550
-Weaned off NTG gtt overnight, remains insulin gtt per protocol
-Last CI 3.10, U/O since OR 1385 mL
-Monitor chest tube output: 2meds 190/410
-Cont. current meds (ASA, Lopressor, Amiodarone- increased to 400 TID d/t tachycardia, Flomax)
-D/C'd swan and a-line this AM @ 0500
-D/C'd waller catheter later today
-Transfer to [facility] phase today once off insulin gtt
-Maintain temporary PW (will likely pull in 1-2 days)
-Maintain cordis
-Encourage use of IS
-Wean off of O2 as tolerated
-OOB into chair/Ambulate
Assessment / Plan
-
Assessment:
-S/P Standard sternotomy/Surgical aortic valve replacement [29 mm bioprosthesis]/Left atrial maze [encompass clamp, posterior wall isolation]/ Left atrial appendage exclusion [35 mm clip], by Dr. Vigil, 01/13/24, pod#1
-Severe aortic valve insufficiency secondary to leaflet prolapse x 2
-Dilated cardiomyopathy, nonischemic secondary to longstanding aortic valve insufficiency
-LVEF 50-55% per intraop GUERLINE
-New onset a-fib intraop S/p defibrillation @ 50J intraop
-Hyperlipidemia
-Hypertension
-History of recurrent adenocarcinoma of the prostate, status post radical prostatectomy and chemotherapy, 2019
-Nocturia (on Flomax)
-CKD stage IIIb
-Ascending thoracic aortic ectasia/mild aneurysmal dilation
-Acute postop blood loss/Anemia (stable without transfusion)
-Acute postop atelectasis
-Acute postop hypovolemia with subsequent hypervolemia
Discussed patient care with: Cardiology, Nursing, Respiratory Therapy, Pharmacy and Care Team
Subjective
Procedure
S/P Standard sternotomy/Surgical aortic valve replacement [29 mm bioprosthesis]/Left atrial maze [encompass clamp, posterior wall isolation]/ Left atrial appendage exclusion [35 mm clip], by Dr. Vigil, 01/13/24
-
Date of Service: January 14, 2024
No major issues overnight, c/o incisional pain, otherwise feels well
Objective Data
-
PT 17.2 Sec (11.4-14.6) H 01/13/24 11:34
INR 1.38 01/13/24 11:34
APTT 31.3 Sec (23.4-35.0) 01/13/24 11:34
Vital Signs
Vital Signs
Temp Pulse Resp BP Pulse Ox
99.2 F 86 15 115/80 94
01/14/24 03:00 01/14/24 03:05 01/14/24 03:05 01/14/24 03:00 01/14/24 03:05
CT Intake/Output/Weight
01/13/24 01/13/24 01/14/24
06:59 18:59 06:59
Intake Total 326.2 / 647.8 321.6 / 647.8
Output Total 1170 / 1685 515 / 1685
Balance -843.8 / -1037.2 -193.4 / -1037.2
SaO2: 94 (6L)
Physical Exam
-
General: Awake, Oriented and AOx3
Cardiovascular: Regular rate & rhythm, No Murmurs, No Rub and No Gallop
Respiratory: Decreased Breath Sounds (at bases, otherwise clear)
Sternum: Stable
Incision: Clean, Dry, Intact and Dressing Intact
Extremities: Other (+trace edema)
Data Reviewed
-
Lab Results: Results Reviewed
Medications: Active Meds Reviewed
Chest X-Ray: Report Reviewed and Image Reviewed
ECG: Report Reviewed and Image Reviewed
[2024-01-14 03:31] LABS: Hematocrit 29.9 % (39.0-52.0); Hemoglobin 10.6 g/dL (13.0-18.0); Mean Corp Hgb Conc. 35.5 g/dL (33.0-37.0); Mean Corpuscular Hgb 32.7 pg (27.0-31.0); Mean Corpuscular Volume 92.3 fL (80.0-94.0); Mean Platelet Volume 9.5 fL (7.4-10.4); Platelet Count 155 10^3/uL (130-400); Red Blood Cell Count 3.24 10^6/uL (4.70-6.10); Red Cell Dist. Width 13.2 % (11.5-14.5); White Blood Cell Count 10.4 10^3/uL (4.8-10.8)
[2024-01-14 03:45] LABS: Blood Urea Nitrogen 33 mg/dl (9-20); Calcium 9.3 mg/dl (8.4-10.2); Carbon Dioxide 23 mmol/L (22-30); Chloride 111 mmol/L (98-107); Estimated Creatinine Clearance 68 ml/min; Glucose 112 mg/dl (70-99); Magnesium 2.3 mg/dl (1.6-2.3); Potassium 3.9 mmol/L (3.5-5.1); Sodium 143 mmol/L (135-145); eGFR 51.03
[2024-01-14 04:01] LABS: Glucose - Point of Care 98 mg/dl (70-99)
[2024-01-14 04:59] LABS: Glucose - Point of Care 116 mg/dl (70-99)
[2024-01-14] MEDS: TYLENOL 1000 MG PO ×3 (05:24→22:19)
[2024-01-14] MEDS: KCL 20 MEQ PO (05:24)
--- NOTE | 2024-01-14 05:40 | PTCARENOTE ---
Pt reassessed. Pt SR on the tele monitor w/ PVC's. HR 90s. Temporary epicardial v-wire intact. Settings unchanged. BP 126/83. Pt on 4 L NC. POX 94%. Mediastinal CT assessment unchanged from original. Deep breathing encouraged. Crum catheter C/D/I.
EKG completed. Labs drawn and sent. Left radial a-line and swan dc'd as ordered. Glycemic protocol followed. Call leija within reach.
[2024-01-14 07:00] LABS: Glucose - Point of Care 110 mg/dl (70-99)
[2024-01-14] MEDS: LIDOCAINE 4% PATCH 1 PATCH TOPICAL (07:40)
[2024-01-14] MEDS: PACERONE 400 MG PO ×3 (07:41→22:19)
[2024-01-14] MEDS: VITAMIN C 500 MG PO (07:41)
[2024-01-14] MEDS: SENOKOT-S 1 TABLET PO ×2 (07:41→20:19)
[2024-01-14] MEDS: LOPRESSOR 12.5 MG PO (07:41)
[2024-01-14] MEDS: ROXICODONE 5 MG PO ×3 (07:41→20:19)
[2024-01-14] MEDS: FEOSOL 325 MG PO (07:41)
[2024-01-14] MEDS: NEURONTIN 100 MG PO ×3 (07:42→22:19)
[2024-01-14] MEDS: LOW STRENGTH ASPIRIN 81 MG PO (07:42)
[2024-01-14] MEDS: PROTONIX 40 MG PO (07:42)
[2024-01-14] MEDS: BACTROBAN 2% OINTMENT 1 APPLIC NASAL ×2 (07:42→20:22)
--- NOTE | 2024-01-14 08:11 | W.PN.CD ---
Today's Communication / Plan
-
OOB and walking as able
routine post-op care
Impression / Plan
-
IMPRESSION/PLAN: 68M with prostate cancer with recurrence, hypertension, mild LVH, severe AI, and ascending aorta dilation at 4.4 cm presented for SAVR.
Outpatient cord splicer: Dr. Osorio
SAVR (29mm Ray Inspiris) by Dr Vigil 01/13/2024
-Pre LVEF 50%, unchanged post without RWMA
-Coming off of bypass he did have 1 fibrillatory event likely secondary to air entrainment which required defibrillation at 50 J
-MG 4mmg with CI > 2 at the end of the case
-EKG sinus this am, ectopy with NSVT overnight amio increased to 400 mg
- For HTN consider switching metop to carvedilol
Atrial fibrillation, paroxysmal
-Controlled rates after induction during the [place] placement, left atrial MAZE performed & ANUJA clip
-Follow telemetry
HTN, managed by Nephrology
CKDIIIa
Prostate cancer S/P Robotic Radical prostatectomy and Lymphadenectomy ([place], 02/2019) & XRT
SUBJECTIVE:
Feeling weak but otherwise no new complaints
Physical Exam
Vital Signs/Labs
Vital Signs
Temp Pulse Resp BP Pulse Ox
99.7 F 89 16 129/91 96
01/14/24 05:00 01/14/24 07:41 01/14/24 07:00 01/14/24 07:41 01/14/24 07:00
01/13/24 01/14/24 01/15/24
06:59 06:59 06:59
Actual Weight 267 lb 3.204 oz 264 lb 5.348 oz
01/14/24 03:17
01/14/24 03:17
PT 17.2 Sec (11.4-14.6) H 01/13/24 11:34
INR 1.38 01/13/24 11:34
APTT 31.3 Sec (23.4-35.0) 01/13/24 11:34
Magnesium 2.3 mg/dl (1.6-2.3) 01/14/24 03:17
Physical Exam
Constitutional: No acute distress
EENT: Anicteric
Cardiovascular: Rhythm & rate is regular
Respiratory: Crackles Present
GI: Soft
Neuro/Psych: AO x 3
Data Reviewed
-
Date of Service: January 14, 2024
Medical Decision Making: External Notes and Reviewed Test Results
EKG: Tracing Personally Visualized and interpreted (sr)
Echo: Report Reviewed by me
Labs: Labs Reviewed by me
--- NOTE | 2024-01-14 08:18 | PTCARENOTE ---
Received pt from energy engineer RN; pt AAOx3 and resting comfortably in chair; NSR on monitor and VSS; Epicardial V wire set to back up VVI 40/8/2 and no pacing noted; RIJ Cordis and PIV x1 all patent; Insulin infusing per Glycemic protocol see flow
sheet for details; Lungs diminished; IS to 1500; CT x2 to -20 wall suction no air leak noted; hypoactive bowel sounds; Crum catheter removed by RN at 0800 and Pt DTV by 1400; palpable pulses throughout; trace hand edema noted; surgical site C/D/I;
see nursing documentation for further details.
--- NOTE | 2024-01-14 08:28 | W.PN.ANS.POP ---
Anesthesia Post Operative
- Anesthesia Post Op Note
Vital Signs Stable-See Nursing Note: Yes
Airway Patent: Yes
Adequate Pain Control: Yes
Change in Mental Status: No
Current Postoperative Nausea & Vomiting: No
Anesthesia Complications: No
General Anesthetic Recall: No (N/A)
Unplanned Admission: No
Post Op Hydration Adequate: Yes
--- NOTE | 2024-01-14 08:31 | W.PN.INTV ---
Today's Communication / Plan
Recommendations
Up OOB as tolerated
Pain control
Maintain SpO2 >90-94% and titrate down supplemental O2 as tolerated
Encourage incentive spirometer
Cardiac rehab consult
Insulin drip now off - maintain BG goal of 140�180
Patient now downgraded to CVICU�telemetry status. No additional recommendations at this time. Forwarder Operator/Pulmonary service will now sign off. Please reconsult if there are any additional questions/concerns, or if patient's respiratory status
deteriorates.
Assessment
-
Assessment: 68-year-old male non-smoker with a PMHx of aortic valve insufficiency, AAA, recurrent prostate adenocarcinoma s/p radical prostatectomy and lymphadenectomy (02/2019) + XRT, hyperlipidemia and hypertension who presents with elective
surgical aortic valve repair. He is known to the cardiothoracic surgery service with last visit on 12/18/[address] Vigil. Prior echo from 11/19/2023 showed moderate/severe eccentric AI with a dilated aortic root with the sinuses of Valsalva at
4.2 cm, ST junction 3.9 cm and ascending aorta 4.5 cm. He has been having worsening shortness of breath and meets indication for surgical aortic valve replacement. On 01/13/2024, he underwent surgical aortic valve replacement; during the procedure
while the [place] was being placed he went into atrial fibrillation and underwent left atrial MAZE + left atrial appendage exclusion with a 35mm clip, and was cardioverted with 50 J once he came off bypass due to recurrent fibrillatory event. There
were no complications and he was transferred to the CVICU postoperatively. Forwarder Operator/pulmonary service now consulted for additional management/recommendations.
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
Impression:
#Severe aortic valve insufficiency with prolapse leaflets and dilated RV s/p surgical aortic valve replacement (POD #1)
#New onset atrial fibrillation s/p left atrial maze + left atrial appendage exclusion with 35mm clip (POD #1)
#Acute thrombocytopenia (mild) - now resolved
#Acute respiratory failure with hypercapnia - resolved
#Chronic anemia
#History of recurrent prostate cancer s/p prostatectomy/lymphadenectomy + XRT
#AAA without rupture
#Hypertension
#Hyperlipidemia
Plan:
Patient successfully extubated on 01/13/2024 to nasal cannula, and is currently on 2 L/min nasal cannula breathing comfortably
prn nebulized bronchodilators
Encourage incentive spirometer use 10x per hour for at least 4 hrs a day
Maintain MAP>65
Replete electrolytes with K>4, Mg>2
Monitor for recurrence of atrial fibrillation, and continue with amiodarone PO load
He is s/p left atrial appendage exclusion; defer starting systemic AC to cardiology
Monitor chest tube output (mediastinal chest tubes x2)
Monitor hemoglobin
Monitor platelet count and coags
Transfuse blood products as needed to maintain Hb>7g/dL, plt>50k (given post-operative status)
CT surgery managing chest tubes
Monitor blood sugar to maintain euglycemia with goal BG 140-180
Insulin drip now off; recommend ISS to maintain BG goal as above
Aspiration precautions
DVT prophylaxis
Early nutrition
Early mobilization
Patient now downgraded to CVICU�telemetry status. No additional recommendations at this time. Forwarder Operator/Pulmonary service will now sign off. Thank you for allowing us to be involved in the care of this patient. Please reconsult if there are
any additional questions/concerns, or if patient's respiratory status deteriorates.
Total time spent today was 56 minutes for this encounter. Time includes reviewing laboratory test/imaging results, reviewing pertinent medical records, obtaining and reviewing medical history, performing an appropriate exam, ordering medications,
tests and procedures. Time also includes documentation of this encounter, coordinating patient care and communicating with other healthcare professionals. Total time does not include separately billed tests performed on this date of service.
Imaging:
CXR 01/13/2024: Mild pulmonary vascular congestion.
CXR 01/14/2024: Interval removal of endotracheal tube and Central pulmonary artery catheter; No pneumothorax
Subjective Dataa
Subjective Data
Date of Service:
Date of Service: January 14, 2024
Chief Complaint: Forwarder Operator Follow Up
Subjective:
Patient was seen and evaluated today at bedside. Currently on 2 L/min nasal cannula and sitting in the chair no acute distress. Patient's sister, Darlyn, and friend, Leroy, are at bedside and all questions were answered. Currently, patient's heart
rate is 86 and BP 124/86. He denies any SOB, CP, HOLM, abdominal pain, nausea, fevers or chills.
Review of Systems
General: Other (Negative unless mentioned above)
Objective Data
Data Reviewed
Vital Signs / I&O / Oxygen:
Vital Signs
Temp Pulse Resp BP Pulse Ox
98.2 F 71 18 124/86 95
01/14/24 08:00 01/14/24 09:00 01/14/24 09:00 01/14/24 09:00 01/14/24 09:00
Intake and Output
01/13/24 01/14/24 01/15/24
06:59 06:59 06:59
Intake Total 735.9 / 749.4 40.5 / 40.5
Output Total 1860 / 1925 155 / 155
Balance -1124.1 / -1175.6 -114.5 / -114.5
SaO2 [CPAP] 95
SaO2 [SIMV] 96
SaO2 95
Nasal Cannula flow liters per 4
minute
Physical Exam
General: Respiratory Distress (negative), Comfortable, Chills (negative) and Sweats (negative)
HEENT: Normocephalic, Anicteric and Moist Mucous Membranes
Cardiovascular: S1-S2 and Peripheral Edema (negative)
Respiratory: Wheeze (negative), Crackles (Bibasilar), Rhonchi (negative) and Non-Labored Respirations
GI: Soft, Non Distended, Non Tender and Normal Bowel Sounds
Neurology: AO x 3 and Tremors (negative)
Skin: Warm, Dry, Cyanosis (negative) and Jaundice (negative)
Labs/Micro/Reports
Lab Data
01/14/24 03:17
01/14/24 03:17
Laboratory Results
01/13/24 01/13/24 01/13/24
11:34 12:30 14:15
PT 17.2 H
INR 1.38
APTT 31.3
pH 7.29 L 7.35 7.38
pCO2 52 H 45 40
pO2 74 L 82 L 87
HCO3 25.0 24.8 23.7
O2 Delivery Level 40% fio2
01/13/24 01/13/24 01/13/24
15:03 15:38 17:07
PT
INR
APTT
pH 7.36 7.41 7.38
pCO2 41 37 39
pO2 92 83 68 L
HCO3 23.2 23.5 23.1
O2 Delivery Level
[2024-01-14] MEDS: MAGNESIUM OXIDE PO (08:44)
[2024-01-14 09:03] LABS: Glucose - Point of Care 116 mg/dl (70-99)
[2024-01-14] MEDS: NSS IV (11:13)
[2024-01-14 11:16] LABS: Glucose - Point of Care 107 mg/dl (70-99)
--- NOTE | 2024-01-14 11:24 | PTCARENOTE ---
Assessment unchanged; NSR on monitor and VSS: pt ambulated hallways with RN and cardiac rehab; pt resting comfortably in bed.
[2024-01-14 12:03] LABS: Glucose - Point of Care 105 mg/dl (70-99)
--- NOTE | 2024-01-14 12:05 | PTCARENOTE ---
Insulin drip discontinued per order.
--- NOTE | 2024-01-14 14:10 | CM ---
Reviewed chart. Met with and Mrs. Urban to review dischagre plans. He states is feeling well. Prior to admission he resides with his spouse in a one story home with two steps to enter. Prior to admission he was independent with ambulation and
adls. He does not have any DME in the home. He has a prescription plan and uses [facility]. Medical work-up in progress. The discharge plan is to return home with his spouse and a home visit by the Transitional Care Nurse when medically
stable.
--- NOTE | 2024-01-14 16:00 | PTCARENOTE ---
NSR on monitor and VSS; assessment unchanged and pt resting comfortably in chair with family at bedside.
--- NOTE | 2024-01-14 17:38 | PTCARENOTE ---
No urine output since Crum removal; bladder scanned pt twice once for 131 then second for 171; CVPA updated.
[2024-01-14] MEDS: LASIX 20 MG IV (17:50)
[2024-01-14] MEDS: LOPRESSOR 25 MG PO (20:19)
[2024-01-14] MEDS: MAGNESIUM OXIDE 500 MG PO (20:19)
--- NOTE | 2024-01-14 20:45 | PTCARENOTE ---
Assumed care of pt from dayshift RN. Walking rounds completed. Pt AAOx3. BARRIENTOS. Following commands appropriately. Pt is SR on the tele monitor. HR 80-90s. Temporary epicardial v-wire intact and set to VVI 40/8/2. BP stable. Palpable pulses throughout.
+1 generalized edema. Pt on 2 L NC. POX 94-95%. Mediastinal CT x2 to -20 suction, no airleak noted at this time, and output WNL. Lung sounds diminished. Deep breathing and IS encouraged. Abdomen soft/nontender. +BS. Pt voided in urinal w/o issue.
Sternal incision intact and DAYANA. Right IJ cordis and PIV C/D/I. See MAR for pain medication administration. See worklist for full nursing assessment and interventions. Pt repositioned in bed. Call leija within reach.
[2024-01-15] VITALS (11 sets, daily range): BP systolic 120–155; BP diastolic 80–92; PULSE 78; O2SAT 94; BMI 33.3
--- NOTE | 2024-01-15 00:07 | PTCARENOTE ---
No acute change in assessment. Pt SR on the tele monitor. HR 70-80s. BP stable. Pt on 2 L NC. POX 94%. Mediastinal CTx2 assessment unchanged from previous. All surgical sites stable. Pt repositioned in bed. Call leija within reach.
[2024-01-15] MEDS: ROXICODONE 5 MG PO ×3 (04:16→20:30)
[2024-01-15 04:39] LABS: Hematocrit 30.1 % (39.0-52.0); Hemoglobin 10.2 g/dL (13.0-18.0); Mean Corp Hgb Conc. 33.9 g/dL (33.0-37.0); Mean Corpuscular Hgb 32.6 pg (27.0-31.0); Mean Corpuscular Volume 96.2 fL (80.0-94.0); Mean Platelet Volume 9.6 fL (7.4-10.4); Platelet Count 146 10^3/uL (130-400); Red Blood Cell Count 3.13 10^6/uL (4.70-6.10); Red Cell Dist. Width 13.5 % (11.5-14.5); White Blood Cell Count 12.4 10^3/uL (4.8-10.8)
--- NOTE | 2024-01-15 04:41 | PTCARENOTE ---
No acute changes in assessment. Pt SR on the tele monitor. HR 80s. BP 142/84. Pt on 2 L NC. POX 94%. Mediastinal CTx2 assessment unchanged. All surgical sites stable. Labs drawn and sent. Pt voiding in urinal. Pt repositioned in bed. See MAR for
medication administration. Call leija within reach.
[2024-01-15 05:17] LABS: Blood Urea Nitrogen 47 mg/dl (9-20); Calcium 9.1 mg/dl (8.4-10.2); Carbon Dioxide 27 mmol/L (22-30); Chloride 105 mmol/L (98-107); Estimated Creatinine Clearance 68 ml/min; Glucose 134 mg/dl (70-99); Magnesium 2.6 mg/dl (1.6-2.3); Potassium 4.1 mmol/L (3.5-5.1); Sodium 139 mmol/L (135-145); eGFR 51.03
[2024-01-15] MEDS: TYLENOL 1000 MG PO ×2 (06:22→22:03)
--- NOTE | 2024-01-15 07:00 | W.PN.CT ---
Today's Communication / Plan
-
-pod #2
-no issues overnight
-in nsr
-CT output: 2 meds 120/350 in 12/24 hrs
-follow Cr - 1.5 today (1.5 on 12, 1.3 preop)
-wean off O2 - pOx 93-94 on 2L
-current meds (ASA, Lopressor 25 bid, Amio 400 tid, Flomax)
-encourage IS, OOB
Assessment / Plan
-
Assessment:
-S/P Standard sternotomy/Surgical aortic valve replacement [29 mm bioprosthesis]/Left atrial maze [encompass clamp, posterior wall isolation]/ Left atrial appendage exclusion [35 mm clip], by Dr. Vigil, 01/13/24, pod#2
-Severe aortic valve insufficiency secondary to leaflet prolapse x 2
-Dilated cardiomyopathy, nonischemic secondary to longstanding aortic valve insufficiency
-LVEF 50-55% per intraop GUERLINE
-New onset a-fib intraop S/p defibrillation @ 50J intraop
-Hyperlipidemia
-Hypertension
-History of recurrent adenocarcinoma of the prostate, status post radical prostatectomy and chemotherapy, 2019
-Nocturia (on Flomax)
-CKD stage IIIb
-Ascending thoracic aortic ectasia/mild aneurysmal dilation
-Acute postop blood loss/Anemia (stable without transfusion)
-Acute postop atelectasis
-Acute postop hypovolemia with subsequent hypervolemia
Discussed patient care with: Nursing and Care Team
Subjective
Procedure
S/P Standard sternotomy/Surgical aortic valve replacement [29 mm bioprosthesis]/Left atrial maze [encompass clamp, posterior wall isolation]/ Left atrial appendage exclusion [35 mm clip], by Dr. Vigil, 01/13/24
-
Date of Service: January 15, 2024
Objective Data
-
Lab Results
01/15/24 04:20
01/15/24 04:20
PT 17.2 Sec (11.4-14.6) H 01/13/24 11:34
INR 1.38 01/13/24 11:34
APTT 31.3 Sec (23.4-35.0) 01/13/24 11:34
Vital Signs
Vital Signs
Temp Pulse Resp BP Pulse Ox
98.5 F 84 16 142/84 93
01/15/24 04:13 01/15/24 06:40 01/15/24 04:13 01/15/24 04:13 01/15/24 04:20
CT Intake/Output/Weight
01/14/24 01/15/24 01/15/24
18:59 06:59 18:59
Intake Total 90.5 / 200.5 110 / 200.5
Output Total 660 / 1930 1270 / 1930
Balance -569.5 / -1729.5 -1160 / -1729.5
SaO2: 93
Physical Exam
-
General: Awake and AOx3
Cardiovascular: Regular rate & rhythm, No Murmurs and No Rub
Respiratory: Decreased Breath Sounds
Sternum: Stable
Incision: Clean, Dry and Intact
Extremities: Edema +1
Abdomen: soft, nontender, nondistended, + bowel sounds
Data Reviewed
-
Lab Results: Results Reviewed
Medications: Active Meds Reviewed
Chest X-Ray: Report Reviewed and Image Reviewed
ECG: Report Reviewed and Image Reviewed
--- NOTE | 2024-01-15 08:00 | PTCARENOTE ---
Resumed care of pt from previous RN. Walking rounds completed. Pt AAOx3. NSR on the tele monitor. HR 80-90s. epicardial v-wire present and set to VVI 40/8/2. VSS. Palpable pulses throughout. trace generalized edema. Pt POX 94-95%. Mediastinal CT x2
to -20 suction, no airleak noted at this time, and output WNL. Lung sounds diminished. Deep breathing and IS encouraged. Abdomen soft/nontender. +BS. Pt voided in urinal w/o issue. Right IJ cordis and PIV C/D/I. Sternal incision intact and DAYANA.
Right IJ cordis and PIV C/D/I. Will continue to monitor.
[2024-01-15] MEDS: LOW STRENGTH ASPIRIN 81 MG PO (09:14)
[2024-01-15] MEDS: VITAMIN C 500 MG PO (09:14)
[2024-01-15] MEDS: SENOKOT-S 1 TABLET PO ×2 (09:14→20:30)
[2024-01-15] MEDS: NEURONTIN 100 MG PO ×3 (09:14→22:03)
[2024-01-15] MEDS: FEOSOL 325 MG PO (09:14)
[2024-01-15] MEDS: LASIX 20 MG IV (09:14)
[2024-01-15] MEDS: LOPRESSOR 25 MG PO (09:14)
[2024-01-15] MEDS: MAGNESIUM OXIDE 500 MG PO (09:14)
[2024-01-15] MEDS: BACTROBAN 2% OINTMENT 1 APPLIC NASAL ×2 (09:16→20:31)
[2024-01-15] MEDS: LIDOCAINE 4% PATCH 1 PATCH TOPICAL (09:16)
[2024-01-15] MEDS: PROTONIX 40 MG PO (09:23)
[2024-01-15] MEDS: PACERONE PO (09:25)
--- NOTE | 2024-01-15 10:37 | PN.CDI ---
Addendum entered and electronically signed by Wyatt Santos PA-C 01/16/24 13:36:
Pt with postoperative CLARIBEL.Creat. improving today.
Original Note:
CDI
- -
CDI:
Physician Documentation Request
Admit Date: 01/13/24 05:[address] Surgery,
Patient admitted for aortic valve replacement.
Laboratory Tests
01/13/24 01/14/24 01/15/24
11:34 03:17 04:20
Creatinine 1.2 1.5 H 1.5 H
Clarify which of the following accurately represents the patient's renal status:
CLARIBEL
Rise in creatinine
Other
Criteria for CLARIBEL*
1 Increase in serum creatinine by > or = to 0.3 mg/dL (> or = to 26.5 micromol/L) within 48 hours, OR
2 Increase in serum creatinine to > or = to 1.5 times baseline, which is known or presumed to have occurred within 7 days, OR
3 Urine volume < 0.5 nL/kg/hour for six hours
Use of terms such as suspected, likely, concern for, or probable (associated with a specific diagnosis that is being evaluated, monitored, or treated as if it exists) are acceptable and can be coded in the inpatient setting, when documented at the
time of discharge.
Thank you,
Allyson Loo RN, BSN
CDI Specialist
Available via [employer] text
Please use your independent medical judgment in providing your response.
*Source: Kidney Disease: Improving Global Outcomes (KDIGO) 2012
--- NOTE | 2024-01-15 10:44 | CM ---
Reviewed chart. Met with Mr. Urban to review discharge plans. He states he ambulated today and he feels tired. We reviewed a home visit by the Transitional Care Nurse. He is agreeable to a home visit. Prior to admission he resides with his spouse
in a one story home with two steps to enter. Prior to admission he was independent with ambulation and adls. He does not have any DME in the home. He has a prescription plan and uses [facility]. Medical work-up in progress. The discharge plan
is to return home with his spouse and a home visit by the Transitional Care Nurse when medically stable.
[2024-01-15] MEDS: NSS 500 IV (11:59)
[2024-01-15] MEDS: NORVASC 10 MG PO (11:59)
[2024-01-15] MEDS: TYLENOL PO (14:10)
--- NOTE | 2024-01-15 15:30 | PTCARENOTE ---
Assumed care of patient at 1500. Pt is awake, alert, and oriented. No complaints of pain. Pt remains SR with HR 80's-90's. Epicardial V wire in place set to VVI . Mediastinal chest tubes x2 in place draining serosanguineous drainage. Remains
on room air. Continues to utilize IS. Tolerating PO diet. Voiding without difficulty in urinal. Pt currently OOB in chair with family at bedside and call leija within reach.
[2024-01-15] MEDS: PACERONE 200 MG PO ×2 (17:04→22:03)
--- NOTE | 2024-01-15 17:15 | PTCARENOTE ---
No changes in assessment. Pt remains SR with HR 90's. BP 121/80 MAP 91. Pulse oximetry 92% on room air. Pt remains OOB in chair.
[2024-01-15] MEDS: MAGNESIUM OXIDE PO (20:30)
[2024-01-15] MEDS: LOPRESSOR 50 MG PO (20:30)
--- NOTE | 2024-01-15 20:45 | PTCARENOTE ---
Assumed care of pt from dayshift RN. Walking rounds completed. Pt AAOx3. BARRIENTOS & following commands appropriately. Pt is SR on the tele monitor. HR 80s. Temporary epicardial v-wire intact and set to VVI 40/8/2. BP stable. Palpable pulses throughout.
+1 generalized edema. Pt on RA. POX 91%. Mediastinal CTx2 to -20 suction, no airleak noted, and output WNL. Deep breathing and IS encouraged. Abdomen soft/nontender. +BS. Pt voiding in urinal w/o issue. All surgical sites stable. Right IJ cordis and
PIV C/D/I. Pt c/o feeling like he has a head cold. No fever. CTPA notified - will order Mucinex and nasal spray. See worklist for full nursing assessment and interventions. Call leija within reach.
[2024-01-15] MEDS: FLOMAX 0.4 MG PO (22:03)
[2024-01-15] MEDS: MUCINEX 600 MG PO (22:03)
[2024-01-16] VITALS (22 sets, daily range): BP systolic 101–152; BP diastolic 74–99; PULSE 83; O2SAT 94–96; BMI 33.5
--- NOTE | 2024-01-16 00:25 | PTCARENOTE ---
No acute change in assessment. Pt SR on the tele monitor. HR 70s. BP stable. Pt on RA. POX 94%. Mediastinal CTx2 assessment unchanged from original. All surgical sites stable. Pt voiding in urinal ad lizabeth. Pt repositioned in the bed. Call leija within
reach.
[2024-01-16] MEDS: TYLENOL 1000 MG PO ×3 (05:01→22:16)
--- NOTE | 2024-01-16 05:06 | PTCARENOTE ---
Pt SR on tele monitor. HR 80s. BP stable. Pt on RA. POX 90-92%. Mediastinal CT assessment unchanged. Labs drawn and sent. Pt repositioned in bed. Call leija within reach.
[2024-01-16 05:30] LABS: Hematocrit 28.9 % (39.0-52.0); Hemoglobin 9.6 g/dL (13.0-18.0); Mean Corp Hgb Conc. 33.2 g/dL (33.0-37.0); Mean Corpuscular Hgb 31.9 pg (27.0-31.0); Mean Platelet Volume 9.5 fL (7.4-10.4); Platelet Count 129 10^3/uL (130-400); Red Blood Cell Count 3.01 10^6/uL (4.70-6.10); Red Cell Dist. Width 13.4 % (11.5-14.5); White Blood Cell Count 8.7 10^3/uL (4.8-10.8)
[2024-01-16 06:06] LABS: Blood Urea Nitrogen 44 mg/dl (9-20); Carbon Dioxide 27 mmol/L (22-30); Chloride 103 mmol/L (98-107); Estimated Creatinine Clearance 78 ml/min; Glucose 119 mg/dl (70-99); Magnesium 2.7 mg/dl (1.6-2.3); Potassium 4.1 mmol/L (3.5-5.1); Sodium 138 mmol/L (135-145); eGFR > 60.00
[2024-01-16] MEDS: ROXICODONE 5 MG PO ×2 (06:21→13:39)
--- NOTE | 2024-01-16 06:48 | W.PN.CT ---
Today's Communication / Plan
-
-pod #3
-no issues overnight
-CT output: 2 meds 40/135 in 12/24 hrs
-Cr 1.3 today (1.5 on 01/14 and 1.3 preop)
-increased Lopressor 50 bid (takes 200 bid Labetalol at home)
-continue current meds
-encourage IS, OOB
Assessment / Plan
-
Assessment:
-S/P Standard sternotomy/Surgical aortic valve replacement [29 mm bioprosthesis]/Left atrial maze [encompass clamp, posterior wall isolation]/ Left atrial appendage exclusion [35 mm clip], by Dr. Vigil, 01/13/24, pod#3
-Severe aortic valve insufficiency secondary to leaflet prolapse x 2
-Dilated cardiomyopathy, nonischemic secondary to longstanding aortic valve insufficiency
-LVEF 50-55% per intraop GUERLINE
-New onset a-fib intraop S/p defibrillation @ 50J intraop
-Hyperlipidemia
-Hypertension
-History of recurrent adenocarcinoma of the prostate, status post radical prostatectomy and chemotherapy, 2019
-Nocturia (on Flomax)
-CKD stage IIIb
-Ascending thoracic aortic ectasia/mild aneurysmal dilation
-Acute postop blood loss/Anemia (stable without transfusion)
-Acute postop atelectasis
-Acute postop hypovolemia with subsequent hypervolemia
Discussed patient care with: Nursing and Care Team
Subjective
Procedure
S/P Standard sternotomy/Surgical aortic valve replacement [29 mm bioprosthesis]/Left atrial maze [encompass clamp, posterior wall isolation]/ Left atrial appendage exclusion [35 mm clip], by Dr. Vigil, 01/13/24
-
Date of Service: January 16, 2024
Objective Data
-
Lab Results
01/16/24 05:00
01/16/24 05:00
PT 17.2 Sec (11.4-14.6) H 01/13/24 11:34
INR 1.38 01/13/24 11:34
APTT 31.3 Sec (23.4-35.0) 01/13/24 11:34
Vital Signs
Vital Signs
Temp Pulse Resp BP Pulse Ox
98.9 F 82 18 120/89 84
01/16/24 04:55 01/16/24 06:15 01/16/24 06:15 01/16/24 06:15 01/16/24 04:55
CT Intake/Output/Weight
01/15/24 01/15/24 01/16/24
06:59 18:59 06:59
Intake Total 110 / 200.5 570 / 670 100 / 670
Output Total 1270 / 1930 945 / 1785 840 / 1785
Balance -1160 / -1729.5 -375 / -1115 -740 / -1115
SaO2: 84
Physical Exam
-
General: Awake and AOx3
Cardiovascular: Regular rate & rhythm, No Murmurs and No Rub
Respiratory: Decreased Breath Sounds
Sternum: Stable
Incision: Clean, Dry and Intact
Extremities: Edema +1
Data Reviewed
-
Lab Results: Results Reviewed
Medications: Active Meds Reviewed
Chest X-Ray: Report Reviewed and Image Reviewed
ECG: Report Reviewed and Image Reviewed
--- NOTE | 2024-01-16 07:49 | W.PN.CD ---
Today's Communication / Plan
-
stable
in sinus
appears comfortable in chair
continue post op care per CT surgery
Impression / Plan
-
IMPRESSION/PLAN: 68M with prostate cancer with recurrence, hypertension, mild LVH, severe AI, and ascending aorta dilation at 4.4 cm presented for SAVR.
Outpatient cafeteria cook: Dr. Osorio
SAVR (29mm Ray Inspiris) by Dr Vigil 01/13/2024
-Pre LVEF 50%, unchanged post without RWMA
-Coming off of bypass he did have 1 fibrillatory event likely secondary to air entrainment which required defibrillation at 50 J
-remains in sinus
Atrial fibrillation, paroxysmal
-Controlled rates after induction during the [place] placement, left atrial MAZE performed & ANUJA clip
-Follow telemetry
HTN, managed by Nephrology
CKDIIIa
Prostate cancer S/P Robotic Radical prostatectomy and Lymphadenectomy ([place], 02/2019) & XRT
SUBJECTIVE:
Feeling weak but otherwise no new complaints
Physical Exam
Vital Signs/Labs
Vital Signs
Temp Pulse Resp BP Pulse Ox
98.9 F 82 18 120/89 84
01/16/24 04:55 01/16/24 06:15 01/16/24 06:15 01/16/24 06:15 01/16/24 06:55
01/15/24 01/16/24 01/17/24
06:59 06:59 06:59
Actual Weight 121 kg 121.7 kg
01/16/24 05:00
01/16/24 05:00
PT 17.2 Sec (11.4-14.6) H 01/13/24 11:34
INR 1.38 01/13/24 11:34
APTT 31.3 Sec (23.4-35.0) 01/13/24 11:34
Magnesium 2.7 mg/dl (1.6-2.3) H 01/16/24 05:00
Physical Exam
Constitutional: No acute distress
Cardiovascular: Rhythm & rate is regular
Respiratory: Wheeze Absent and Rhonchi Absent
GI: Soft
Data Reviewed
-
Date of Service: January 16, 2024
Medical Decision Making: Reviewed Test Results
Medical Tests (PFT, Pathology etc): Report Reviewed by me
Labs: Labs Reviewed by me
[2024-01-16] MEDS: LIDOCAINE 4% PATCH 1 PATCH TOPICAL (08:36)
[2024-01-16] MEDS: LASIX 40 MG PO (08:36)
[2024-01-16] MEDS: LOW STRENGTH ASPIRIN 81 MG PO (08:36)
[2024-01-16] MEDS: NEURONTIN 100 MG PO ×3 (08:37→22:16)
[2024-01-16] MEDS: PROTONIX 40 MG PO (08:37)
[2024-01-16] MEDS: SENOKOT-S 1 TABLET PO ×2 (08:37→20:16)
[2024-01-16] MEDS: LOPRESSOR 50 MG PO (08:37)
[2024-01-16] MEDS: FEOSOL 325 MG PO (08:37)
[2024-01-16] MEDS: KCL 20 MEQ PO (08:37)
[2024-01-16] MEDS: NORVASC 10 MG PO (08:37)
[2024-01-16] MEDS: PACERONE 200 MG PO ×3 (08:37→22:16)
[2024-01-16] MEDS: MUCINEX 600 MG PO ×2 (08:37→20:16)
[2024-01-16] MEDS: VITAMIN C 500 MG PO (08:37)
[2024-01-16] MEDS: BACTROBAN 2% OINTMENT 1 APPLIC NASAL ×2 (08:38→20:16)
[2024-01-16] MEDS: MAGNESIUM OXIDE PO ×2 (08:38→19:49)
--- NOTE | 2024-01-16 09:45 | PTCARENOTE ---
assumed care of pt from previous shift RN, sinus rhythm on tele, VSS, + peripheral pulses, +1 edema to bilateral lower extremities. Lungs diminished, pox 98% on RA, coughing and deep breathing encouraged. +bs, tolerating PO intake, voids
spontaneously. MSI w glue intact, pacing wire removed by CT PA at 9am, mediastinal CTs to be removed. Cordis to be removed. PIV flushes easily. Plan of care reviewed w the pt and questions encouraged.
[2024-01-16] MEDS: NSS IV (11:38)
--- NOTE | 2024-01-16 11:38 | PTCARENOTE ---
CTs removed, pt tolerated cardiac rehab
--- NOTE | 2024-01-16 15:39 | CM ---
Reviewed chart. Prior to admission he resides with his spouse in a one story home with two sreps to enter. Prior to admission he was independent with ambulation and adls. He does not have any DME in the home. He has a prescription plan and uses
[facility]. Medical work-up in progress. The discharge plan is to return home with his spouse and a home visit by the Transitional Care Nurse when medically stable.
[2024-01-16] MEDS: CORDARONE 103 MG IV (20:16)
[2024-01-16] MEDS: LOPRESSOR 75 MG PO (20:17)
--- NOTE | 2024-01-16 20:30 | PTCARENOTE ---
Patient received OOB in chair watching television. Patient A+A+Ox3. No neurological deficits noted. No c/o pain or discomfort. Room air. SpO2 90%. 2L O2 placed. SpO2 97%. CHISHOLM. Chest tube dressing intact. Sinus Rhythm. Heart rate 80's. No
c/o chest pain, pressure or discomfort. Normoactive bowel sounds. No BM. No c/o nausea. No vomiting. Voiding without difficulty. Ambulates with minimal assistance. Afebrile. Blood pressure 127/87 (99). Right I.J. Cordis. Patient with
short burst of Sinus Tachycardia. IV Amiodarone Bolus ordered by NATHALY and administered without difficulty. Metoprolol increased to 75 mg PO. Sternal dressing intact. Patient with no c/o back or flank pain. Bilateral lower extremity edema.
Positive, palpable pulses. Assessment as documented.
[2024-01-16] MEDS: FLOMAX 0.4 MG PO (22:16)
[2024-01-16] MEDS: OCEAN, SALINE MIST 2 SPRAYS NASAL (23:30)
--- NOTE | 2024-01-17 00:30 | PTCARENOTE ---
Patient sleeping without difficulty. Assessment/Interventions as documented.
[2024-01-17 03:10] VITALS: BP 139/86
[2024-01-17 03:17] VITALS: BMI 33.4
[2024-01-17 03:41] LABS: Hematocrit 27.5 % (39.0-52.0); Hemoglobin 9.2 g/dL (13.0-18.0); Mean Corp Hgb Conc. 33.5 g/dL (33.0-37.0); Mean Corpuscular Hgb 32.1 pg (27.0-31.0); Mean Corpuscular Volume 95.8 fL (80.0-94.0); Mean Platelet Volume 9.6 fL (7.4-10.4); Platelet Count 128 10^3/uL (130-400); Red Blood Cell Count 2.87 10^6/uL (4.70-6.10); Red Cell Dist. Width 13.3 % (11.5-14.5); White Blood Cell Count 6.5 10^3/uL (4.8-10.8)
[2024-01-17 03:57] LABS: Blood Urea Nitrogen 41 mg/dl (9-20); Calcium 8.9 mg/dl (8.4-10.2); Carbon Dioxide 30 mmol/L (22-30); Chloride 103 mmol/L (98-107); Estimated Creatinine Clearance 73 ml/min; Glucose 110 mg/dl (70-99); Magnesium 2.6 mg/dl (1.6-2.3); Potassium 4.1 mmol/L (3.5-5.1); Sodium 138 mmol/L (135-145); eGFR 55.43
--- NOTE | 2024-01-17 04:00 | PTCARENOTE ---
Patient A+A+Ox3. No neurological deficits noted. No c/o pain or discomfort. Ambulated to bathroom to void. Standing scale weight 121.3 kg. Patient back to bed. AM lab work collected and sent. Right I.J. Cordis discontinued without
difficulty. Patient now OOB in chair watching television. Assessment/Interventions as documented.
[2024-01-17] MEDS: TYLENOL PO (06:23)
--- NOTE | 2024-01-17 06:37 | W.PN.CT ---
Today's Communication / Plan
-
-pod #4
-brief SVT @ 7:30 pm - gave Amio bolus, increased Lopressor to 75 bid
-no complaints, ambulated without problems
-looks SOB in bed, + leg edema. pOx 90% on RA and 96% on 2L
-diuresed with 40 po Lasix on 01/15 (UO unmeasuared)
-follow 2v-CXR
-encourage IS, ambulate
-possible d/c soon
Assessment / Plan
-
Assessment:
-S/P Standard sternotomy/Surgical aortic valve replacement [29 mm bioprosthesis]/Left atrial maze [encompass clamp, posterior wall isolation]/ Left atrial appendage exclusion [35 mm clip], by Dr. Vigil, 01/13/24, pod#4
-Severe aortic valve insufficiency secondary to leaflet prolapse x 2
-Dilated cardiomyopathy, nonischemic secondary to longstanding aortic valve insufficiency
-LVEF 50-55% per intraop GUERLINE
-New onset a-fib intraop S/p defibrillation @ 50J intraop
-Hyperlipidemia
-Hypertension, managed by Nephrology
-History of recurrent adenocarcinoma of the prostate, status post radical prostatectomy and chemotherapy, 2019
-Nocturia (on Flomax)
-CKD stage IIIb
-Ascending thoracic aortic ectasia/mild aneurysmal dilation
-Acute postop blood loss/Anemia (stable without transfusion)
-Acute postop atelectasis
-Acute postop hypovolemia with subsequent hypervolemia
-Acute postop brief SVT 01/15 - tx with Amio bolus, uptitrated po BB
Discussed patient care with: Nursing and Care Team
Subjective
Procedure
S/P Standard sternotomy/Surgical aortic valve replacement [29 mm bioprosthesis]/Left atrial maze [encompass clamp, posterior wall isolation]/ Left atrial appendage exclusion [35 mm clip], by Dr. Vigil, 01/13/24
-
Date of Service: January 17, 2024
Objective Data
-
PT 17.2 Sec (11.4-14.6) H 01/13/24 11:34
INR 1.38 01/13/24 11:34
APTT 31.3 Sec (23.4-35.0) 01/13/24 11:34
Vital Signs
Vital Signs
Temp Pulse Resp BP Pulse Ox
98.5 F 68 18 133/79 96
01/16/24 22:10 01/16/24 22:16 01/16/24 22:10 01/16/24 22:16 01/16/24 22:10
CT Intake/Output/Weight
01/16/24 01/16/24 01/17/24
06:59 18:59 06:59
Intake Total 100 / 670 20 / 410 390 / 410
Output Total 840 / 1785 20 / 20
Balance -740 / -1115 0 / 390 390 / 390
SaO2: 96
Physical Exam
-
General: Awake and AOx3
Cardiovascular: Regular rate & rhythm, No Murmurs and Rub
Respiratory: Decreased Breath Sounds
Sternum: Stable
Incision: Clean, Dry and Intact
Extremities: Other (trace edema b/l)
Abdomen: soft, nontender, c/o gas pain, + bowel sounds, + flatus, no nausea
Data Reviewed
-
Lab Results: Results Reviewed
Medications: Active Meds Reviewed
Chest X-Ray: Report Reviewed and Image Reviewed
ECG: Report Reviewed and Image Reviewed
[2024-01-17 08:20] VITALS: BP 140/83
--- NOTE | 2024-01-17 08:34 | PTCARENOTE ---
assumed care of pt from previous shift RN, sinus rhythm on tele, VSS, +peripheral pulses, +2 edema to bilateral lower extremities. Lungs diminished, pox 96% on RA. + bs, tolerating PO intake, voids spontaneously. MSI with surgical glue intact, CT
sites stable. PIV flushes easily. Plan of care reviewed w the pt and questions encouraged.
--- NOTE | 2024-01-17 09:01 | W.PN.CD ---
Today's Communication / Plan
-
Doing well
Agree with care
Impression / Plan
-
Background: 68M with prostate cancer with recurrence, hypertension, mild LVH, severe AI, and ascending aorta dilation at 4.4 cm presented for SAVR.
Outpatient fire battalion chief: Dr. Osorio
SAVR (29mm Ray Inspiris) by Dr Vigil 01/13/2024
-Pre LVEF 50%, unchanged post without RWMA
-Dong very well
-Normal cors at pre AVR cath
Atrial fibrillation, paroxysmal
-Controlled rates after induction during the [place] placement, left atrial MAZE performed & ANUJA clip
-Follow telemetry
HTN, managed by Nephrology, stable
CKDIIIa
Prostate cancer S/P Robotic Radical prostatectomy and Lymphadenectomy ([place], 02/2019) & XRT
Subjective:
Eager for home
Physical Exam
Vital Signs/Labs
Vital Signs
Temp Pulse Resp BP Pulse Ox
98.4 F 83 18 140/83 96
01/17/24 08:20 01/17/24 08:20 01/17/24 08:20 01/17/24 08:20 01/17/24 08:44
01/16/24 01/17/24 01/18/24
06:59 06:59 06:59
Actual Weight 121.7 kg 121.3 kg
01/17/24 03:21
01/17/24 03:21
PT 17.2 Sec (11.4-14.6) H 01/13/24 11:34
INR 1.38 01/13/24 11:34
APTT 31.3 Sec (23.4-35.0) 01/13/24 11:34
Magnesium 2.6 mg/dl (1.6-2.3) H 01/17/24 03:21
Physical Exam
Constitutional: No acute distress
EENT: Anicteric
Cardiovascular: Rhythm & rate is regular, S1S2 is normal and Rub absent
Respiratory: Respiratory effort normal, Lungs clear to auscul. (decreased at left base) and Crackles Absent
GI: Soft and Distention absent
Neuro/Psych: AO x 3
Data Reviewed
-
Date of Service: January 17, 2024
--- NOTE | 2024-01-17 09:08 | CM ---
Reviewed chart. Met with Mr. Urban to review discharge plans. He states he feels well and maybe able to go home soon. We reviewed a home visit by the Transitional Care Nurse. He is agreeable to a home visit. He states his spouse works from home
and she will be available to assist in his care if needed. Prior to admission he resides with his spouse with two steps to enter. Prior to admission he was independent with ambulation and adls. He ambulated 220 feet yesterday. He does not have
any DME in the home. He has a prescription plan and uses [facility]. Medical work-up in progress. The discharge plan is to return home with his spouse and a home visit by the Transitional Care Nurse when medically stable.
[2024-01-17 09:40] VITALS: BP 119/79
[2024-01-17 09:52] VITALS: BP 122/87
[2024-01-17 09:55] VITALS: BP 119/79; BP 122/87; PULSE 85; O2SAT 94; O2SAT 96
[2024-01-17] MEDS: PROTONIX 40 MG PO (10:09)
[2024-01-17] MEDS: DULCOLAX 10 MG PO (10:09)
[2024-01-17] MEDS: MUCINEX 600 MG PO (10:10)
[2024-01-17] MEDS: FEOSOL 325 MG PO (10:10)
[2024-01-17] MEDS: VITAMIN C 500 MG PO (10:10)
[2024-01-17] MEDS: NEURONTIN 100 MG PO (10:10)
[2024-01-17] MEDS: NORVASC 10 MG PO (10:10)
[2024-01-17] MEDS: LOPRESSOR 75 MG PO (10:10)
[2024-01-17] MEDS: LOW STRENGTH ASPIRIN 81 MG PO (10:10)
[2024-01-17] MEDS: TRICOR 145 MG PO (10:10)
[2024-01-17] MEDS: SENOKOT-S 1 TABLET PO (10:10)
[2024-01-17] MEDS: PACERONE 200 MG PO (10:10)
[2024-01-17] MEDS: LIDOCAINE 4% PATCH TOPICAL (10:11)
[2024-01-17] MEDS: NSS IV (10:11)
[2024-01-17] MEDS: MAGNESIUM OXIDE PO (10:11)
[2024-01-17] MEDS: BACTROBAN 2% OINTMENT 1 APPLIC NASAL (10:14)
--- NOTE | 2024-01-17 11:13 | W.DCSUMMARY ---
Discharge Summary
Discharge Data
Date of Admission: 01/13/24
Date of Discharge: 01/17/24
-
Pending Results: No
Hospital Course
Primary care physician: Mary Freedman
Outpatient placement assistant: Jorge Osorio
Inpatient consultants: [facility]
Procedures:
1. Replacement, needs, left atrial appendage exclusion with sternal fixation
Primary Diagnosis:
1. Severe aortic insufficiency
Secondary Diagnoses:
1. Atrial fibrillation during [place] placement in the operating room
2. Hypertension
3. Hyperlipidemia
4. Adenocarcinoma of the prostate stage IIIc status post prostatectomy and lymphadenctomy (02/2021)
5. Right cataract
6. History of torn bicep tendon
7. Acute postoperative hypoxemia�expected
8. Acute postoperative surgical blood loss anemia�expected
HPI: 68-year-old male was electively admitted on 01/13/2024 for aortic replacement with 29 mm tissue valve, maze, and left atrial appendage exclusion with number [address] Ben Vigil. Maze and left atrial clip were performed
due to atrial fibrillation noted during [place] placement in the operating room. Sternal fixation was performed. Postoperative GUERLINE reported an EF of 50-55% with AV mean gradient of 4 mmHg. Patient returned to CVICU on Levophed at 3, Precedex,
and insulin and initial ABG reported hypoxemia with a pO2 of 64. Patient required FiO2 of 80% PEEP of 10. Oxygenation quickly improved and patient was extubated 1600 evening of surgery. Patient did receive 20 mg of IV Lasix in 1 day of surgery
the following day, patient was declined and Crum removed. Patient was downgraded to telemetry status after insulin infusion was discontinued. No further insulin was required as hemoglobin A1c was 5.0. on post-operative day #2, patient was
diuresed and chest tubes removed. Amlodipine was resumed for hypertension and Amiodarone continued for brief NSVT.. On postoperative day #3, ventricular wires, and mediastinal chest tubes were removed. Patient ambulated with cardiac rehab without
incident. Creatinine remained at 1.4 with baseline noted to be 1.3. Patient did not require any blood products postoperatively. Chest x-ray was unremarkable and patient deemed stable for discharge to home with transitional nurse follow-up.
Home medication changes:
Amiodarone 200 mg daily
Gabapentin 100 mg 3 times daily x 30 days
Oxy 5 milligram as needed with prescription for 20 tablets
Discharge Plan
-
Patient Disposition: Home (Routine Discharge)
Discharge Diagnosis/Procedures: s/p AVR/MAZE/LAAclip
Condition: Good
Diet: Low Cholesterol and Low Sodium
Activity: No strenuous activity
Driving Restrictions: Not until seen by your Dr
Bathing Restrictions: OK to Shower
Other Services: Cardiac Rehab
Specialty Instructions: Weigh Daily- Call MD for wt gain/loss 3 lbs overnight/5 lbs in 1 week
Referrals:
CT Transitional Care Nurse [Outside]
(Please have Chest X-ray, EKG, and Blood Work done a day or two prior to this appointment.
Please schedule your post-operative testing at a facility your insurance permits you to utilize and don't forget to obtain referrals from your primary care physician, if required by your insurance carrier. )
[facility] Cardiac Rehab [Outside] - 02/27/24 1:00 pm
(Cardiac Rehab Orientation appointment is on Feb 26 at 1 pm.
The Cardiac Rehab gym is located on the first floor of the [facility].)
Lacie Batista NP [Specified Professional Personl] - 02/26/24 2:00 pm
Mary Freedman DO [Family Provider] - in four to six weeks (Please make an appointment in four to six weeks. )
Ben Vigil MD [Active] - 02/13/24 1:00 pm
Prescriptions:
New
acetaminophen 325 mg Tablet
650 mg PO Q4HPRN PRN (Reason: mild pain,headache,temp >101F ) Qty: 0 0RF
aspirin 81 mg Tablet,Chewable
81 mg PO DAILY Qty: 0 0RF
amiodarone 200 mg tablet
200 mg PO DAILY Qty: 30 1RF
gabapentin 100 mg Capsule
100 mg PO TID Qty: 90 0RF
oxycodone 5 mg Tablet
5 mg PO Q4HPRN PRN (Reason: severe pain) Qty: 20 0RF
Continued
amlodipine 10 MG tablet
10 mg PO DAILY
fenofibrate nanocrystallized 145 MG tablet
145 mg PO DAILY
tamsulosin 0.4 mg Capsule
0.4 mg PO HS
labetalol 200 mg Tablet
200 mg PO BID
hydrochlorothiazide 25 mg Tablet
25 mg PO DAILY
Discharge Orders:
Discharge Patient (As Directed); Ordered 01/17/24
Ordered By: Brenna Osborne
Care Plan Goals
Care Plan Goals:
Problem: Readiness for enhanced knowledge related to diagnosis and treatment plan
Goal: Understand your diagnosis and treatment plan needs, including medications if applicable.
Instructions: Know your diagnosis, underlying causes and treatment plan options, including medications if applicable. Consult with your health care team to learn about your diagnosis and treatment plan, including medications if applicable.
Discharge Date and Time
Print Language: GREENLANDIC
[2024-01-17 11:31] VITALS: BP 118/66
--- NOTE | 2024-01-17 11:43 | PTCARENOTE ---
2 view CXR completed, tele monitor removed, pt showering.
--- NOTE | 2024-01-17 12:30 | PTCARENOTE ---
IV line removed, discharge instructions, medication list and follow up appointments reviewed w the pt and his , questions encouraged.
== END 2024-01-17 12:50 | disposition home or self-care (01) | DRG 219 ==
LOC: CVICU 05:14
PROVIDERS: Anesthesiology; Nurse Practitioner; ADMITTING PHYSICIAN Thoracic Surgery (Cardiothoracic Vascular Surgery); CONSULT PHYSICIAN Internal Medicine Cardiovascular Disease; CONSULT PHYSICIAN Internal Medicine Critical Care Medicine; FAMILY PHYSICIAN Family Medicine
PROC: B24BZZ4 Ultrasonography of Heart with Aorta, Transesophageal (ICD-10-PCS; 2024-01-13)
PROC: 02RF08Z Replacement of Aortic Valve with Zooplastic Tissue, Open Approach (ICD-10-PCS; 2024-01-13)
PROC: 5A1221Z Performance of Cardiac Output, Continuous (ICD-10-PCS; 2024-01-13)
PROC: 02L70CK Occlusion of Left Atrial Appendage with Extraluminal Device, Open Approach (ICD-10-PCS; 2024-01-13)
PROC: 02580ZZ Destruction of Conduction Mechanism, Open Approach (ICD-10-PCS; 2024-01-13)
DX: I35.2 Nonrheumatic aortic (valve) stenosis with insufficiency (principal); J96.01 Acute respiratory failure with hypoxia; J96.02 Acute respiratory failure with hypercapnia; D62 Acute posthemorrhagic anemia; I42.0 Dilated cardiomyopathy; J98.11 Atelectasis; I47.19 Other supraventricular tachycardia; N17.9 Acute kidney failure, unspecified; I48.91 Unspecified atrial fibrillation; E78.5 Hyperlipidemia, unspecified; I12.9 Hypertensive chronic kidney disease with stage 1 through stage 4 chronic kidney disease, or unspecified chronic kidney disease; D69.59 Other secondary thrombocytopenia; I77.810 Thoracic aortic ectasia; N18.31 Chronic kidney disease, stage 3a; I48.0 Paroxysmal atrial fibrillation; E87.70 Fluid overload, unspecified; E86.1 Hypovolemia; Z79.899 Other long term (current) drug therapy; Z82.49 Family history of ischemic heart disease and other diseases of the circulatory system; Z85.46 Personal history of malignant neoplasm of prostate; Z90.79 Acquired absence of other genital organ(s)
CPT/HCPCS: 88305; 88311; 33259; 36415; 71045; 71046; 80048; 80053; 81003; 81015; 82248; 82330; 82565; 82805; 82810; 82947; 82962; 83036; 83735; 84132; 84302; 84520; 85014; 85018; 85025; 85027; 85049; 85610; 85730; 86850; 86900; 86901; 86920; 87070; 93005; 93312; 93320; 93325; 93880; 94002; C1713

== ENCOUNTER → 2024-03-10 08:13 | Outpatient (REF) | payer MEDICARE, SELFPAY | LOC: HWRCS 08:13 | PROVIDERS: ATTENDING PHYSICIAN Nurse Practitioner; FAMILY PHYSICIAN Family Medicine | DX: Z95.2 Presence of prosthetic heart valve (principal); I48.0 Paroxysmal atrial fibrillation | CPT/HCPCS: 93306 ==

== ENCOUNTER 2024-03-13 11:34 | Outpatient (RCR) | payer MEDICARE, SELFPAY | END 2024-03-13 23:59 | disposition home or self-care (01) | LOC: CRHB 11:34 | PROVIDERS: ATTENDING PHYSICIAN Internal Medicine Cardiovascular Disease; FAMILY PHYSICIAN Family Medicine | DX: Z95.4 Presence of other heart-valve replacement (principal) | CPT/HCPCS: G0422; G0423 ==

== ENCOUNTER 2024-04-10 11:19 | Outpatient (RCR) | payer MEDICARE, SELFPAY | END 2024-04-10 23:59 | disposition home or self-care (01) | LOC: CRHB 11:19 | PROVIDERS: ATTENDING PHYSICIAN Internal Medicine Cardiovascular Disease; FAMILY PHYSICIAN Family Medicine | DX: Z95.4 Presence of other heart-valve replacement (principal) | CPT/HCPCS: G0422; G0423 ==

== ENCOUNTER 2024-04-16 02:28 | Emergency (ER) | payer MEDICARE, SELFPAY ==
[2024-04-16 02:31] VITALS: BP 157/107
[2024-04-16] MEDS: TORADOL 60 MG IM (05:20)
--- NOTE | 2024-04-16 05:43 | ED.GENMED ---
History of Present Illness
General
Chief Complaint: Fall
Source: patient
Exam Limitations: none
Time Seen by Provider: 04/16/24 04:44
Nursing documentation reviewed up to this point in time: agreed with
History of Present Illness
History of Present Illness:
This is a 68-year-old [id number] gentleman who states he slipped on ice April 11 falling onto his back/onto his right posterior shoulder. He admits to mild pain initially but has had increased pain over the past 2 days more so at nighttime
with difficulty getting comfortable. Right posterior scapular pain is worse with movement of his shoulder, worse with lying supine and worse with taking a deep breath only noted when he lies supine. Other than this he denies shortness of breath,
no cough, no chest pain, no weakness or numbness, denies shoulder pain.
He has been taking ibuprofen sporadically but not on a consistent basis.
Past History
Past History
ED Past Medical History: Cancer (Prostate cancer), HTN, Hypercholesterolemia and Other (BPH, prostate cancer)
ED Past Surgical History: Urological (Prostatectomy)
Social History
Tobacco: Non-smoker
Alcohol: Occasional
Personal:
Living: with family
Employment: Retired
Family History
Family History: Other (Noncontributory)
Phy Exam
Physical Exam
Physical Exam:
GENERAL: Alert , in no apparent distress. 68-year-old gentleman appears his stated age, sitting on bench seat in exam room. Bright and alert, pleasant, appears in no acute distress.
EYE: anicteric. The head is normocephalic, atraumatic.
NECK: Supple, nontender, no meningismus, no significant adenopathy. Full range of motion without difficulty nor pain.
ENT: oral mucosa is moist. No rhinorrhea.
CARDIAC: Regular rate and rhythm. no murmur.
LUNGS: Clear breath sounds bilaterally, no acute respiratory distress, no wheezes/rales/rhonchi
ABDOMEN: Soft, nondistended, without focal tenderness, no r/g, no cvat. normoactive BS.
BACK: There is mild to moderate tenderness right medial scapular region. Tenderness over the right levator scapuli musculature. there is no tenderness over the scapula, no soft tissue swelling. There is mild tenderness right lateral chest wall
beneath the axilla and right posterior axillary region. There is no crepitus nor palpable bony abnormality. There is no midline bony tenderness.
NEUROLOGICAL: Alert and oriented x3, no focal neuro deficits. Gait is yi and steady.
SKIN: Warm and dry, normal color, skin intact. No rash.
MUSCULOSKELETAL: No C/C/E. peripheral pulses are full and equal b/l. No palpable tenderness. No tenderness to the shoulder. Full shoulder range of motion without difficulty nor pain.
PSYCH: Normal and appropriate interaction.
Course
Orders/Labs/Results
Orders:
Orders
04/16/24 04:59
Ketorolac [Toradol] 60 mg IM NOW STA
Ribs, Right 3 View W/PA Chest [CR Ribs-right 3 Vw W/pa Chest*] Urgent
Comment:
Reason For Exam: fall 04/11-R upper back pain, rad to axilla
Vital Signs
Initial and Last Documented VS:
Initial Vital Signs
Temp Pulse Resp BP Pulse Ox
97.5 F 68 20 157/107 100
04/16/24 02:31 04/16/24 02:31 04/16/24 02:31 04/16/24 02:31 04/16/24 02:31
Last Documented Vital Signs
Temp Pulse Resp BP Pulse Ox
97.5 F 68 20 157/107 100
04/16/24 02:31 04/16/24 02:31 04/16/24 02:31 04/16/24 02:31 04/16/24 02:31
MDM/Problems Addressed
Differential Diagnosis Includes:
Concern for right posterior thoracic contusion, levator scapula muscle strain, must also consider rib fracture.
Will medicate for pain with IM Toradol and will check chest x-ray, right rib series.
Pain is clearly musculoskeletal in nature, worse with palpation and with movement, not consistent with ACS. No cough nor shortness of breath, nothing to suggest pneumonia.
Chronic conditions affecting care: HTN and Cancer
*Radiology
Radiology exam reviewed: preliminary read by ED provider (Chest x-ray/right rib series shows no evidence of fracture. There is some blunting of the right costophrenic angle concerning for possible small right pleural effusion. No pneumothorax.
Clear lung patel.)
*Pulse Oximetry
Patient hypoxic: no
*Critical Care Note
Total Time (30-74mins, 75-104mins- exclusive of procedures): Not Applicable
Update Note
Update Note:
07:00
Patient feeling improved after IM dose of Toradol.
Rib series/chest x-ray unremarkable save for blunting of the right costophrenic angle, concern for small pleural effusion.
Will discharge to home with prescription for diclofenac for as needed pain. Recommend he discontinue ibuprofen while taking diclofenac. Will add Flexeril to take at bedtime.
Prompt follow-up with PCP for recheck.
Return precautions discussed.
ED Attending Note
-
Portions of this chart may have been created with voice recognition software.� Occasional wrong word or��sound alike� substitutions may have occurred due to the inherent limitations of voice recognition software.
Discharge Plan
Departure
Patient Disposition: Home (Routine Discharge)
Date of Disposition: 04/16/24
Time of Disposition: 07:04
Patient with high blood pressure during this ER visit?: No
Condition: Good
Discharge Problem:
Acute right-sided thoracic back pain
Instructions: Contusion (DC), Upper Back Pain ED
Prescriptions:
New
cyclobenzaprine 10 mg tablet
10 mg PO TIDPRN PRN (Reason: muscle spasm) Qty: 20 0RF
diclofenac sodium 75 mg tablet,delayed release (DR/EC)
75 mg PO BID PRN (Reason: pain) Qty: 30 0RF
No Action
amlodipine 10 MG tablet
10 mg PO DAILY
fenofibrate nanocrystallized 145 MG tablet
145 mg PO DAILY
tamsulosin 0.4 mg Capsule
0.4 mg PO HS
labetalol 200 mg Tablet
200 mg PO BID
hydrochlorothiazide 25 mg Tablet
25 mg PO DAILY
acetaminophen 325 mg Tablet
650 mg PO Q4HPRN PRN (Reason: mild pain,headache,temp >101F ) Qty: 0 0RF
aspirin 81 mg Tablet,Chewable
81 mg PO DAILY Qty: 0 0RF
amiodarone 200 mg tablet
200 mg PO DAILY Qty: 30 1RF
gabapentin 100 mg Capsule
100 mg PO TID Qty: 90 0RF
oxycodone 5 mg Tablet
5 mg PO Q4HPRN PRN (Reason: severe pain) Qty: 20 0RF
Referrals:
Mary Freedman, DO [Family Provider] - Call in 1-3 days for appt
Interventions
Interventions:
*Risk Screen - Suicide Last Done: 04/16/24 02:31
ED-Musculoskeletal Assessment Last Done: 04/16/24 03:58
ED- Neurological Assessment Last Done: 04/16/24 03:58
ED-Skin Assessment Last Done: 04/16/24 03:58
Discharge Date and Time
Print Language: STATELESS
== END 2024-04-16 07:30 | disposition home or self-care (01) ==
LOC: EMR 02:28
PROVIDERS: EMERGENCY PHYSICIAN Emergency Medicine; FAMILY PHYSICIAN Family Medicine
DX: M54.6 Pain in thoracic spine (principal); I10 Essential (primary) hypertension; E78.00 Pure hypercholesterolemia, unspecified; N40.0 Benign prostatic hyperplasia without lower urinary tract symptoms; Z85.46 Personal history of malignant neoplasm of prostate; Z90.79 Acquired absence of other genital organ(s)
CPT/HCPCS: 99283; 96372; 71101

== ENCOUNTER 2024-05-11 12:03 | Outpatient (RCR) | payer MEDICARE, SELFPAY | END 2024-05-11 23:59 | disposition home or self-care (01) | LOC: CRHB 12:03 | PROVIDERS: ATTENDING PHYSICIAN Internal Medicine Cardiovascular Disease; FAMILY PHYSICIAN Family Medicine | DX: Z95.4 Presence of other heart-valve replacement (principal) | CPT/HCPCS: G0422; G0423 ==

== ENCOUNTER 2024-05-27 10:15 | Outpatient (RCR) | payer MEDICARE, SELFPAY | END 2024-05-27 23:59 | disposition home or self-care (01) | LOC: CRHB 10:15 | PROVIDERS: ATTENDING PHYSICIAN Internal Medicine Cardiovascular Disease; FAMILY PHYSICIAN Family Medicine | DX: Z95.4 Presence of other heart-valve replacement (principal) | CPT/HCPCS: G0422; G0423 ==

== ENCOUNTER → 2024-09-03 14:15 | Outpatient (REF) | payer MEDICARE, SELFPAY | LOC: HWRAD 14:15 | DX: R07.81 Pleurodynia (principal); Z91.81 History of falling; M54.6 Pain in thoracic spine | CPT/HCPCS: 71101; 72072 ==

== ENCOUNTER → 2024-12-07 13:38 | Outpatient (REF) | payer MEDICARE, SELFPAY | LOC: HWRAD 13:38 | PROVIDERS: ATTENDING PHYSICIAN Hospitalist; FAMILY PHYSICIAN Family Medicine | DX: N18.31 Chronic kidney disease, stage 3a (principal) | CPT/HCPCS: 76775 ==

== ENCOUNTER → 2024-12-24 16:00 | Outpatient (REF) | payer MEDICARE, SELFPAY | LOC: PAVMRI 16:00 | PROVIDERS: ATTENDING PHYSICIAN Specialist; FAMILY PHYSICIAN Family Medicine | DX: I10 Essential (primary) hypertension (principal); E78.1 Pure hyperglyceridemia; E78.00 Pure hypercholesterolemia, unspecified; N17.9 Acute kidney failure, unspecified | CPT/HCPCS: 74181 ==